=== PATIENT | female | born 1950 | race Caucasian/White ===

== ENCOUNTER → 2023-08-09 07:18 | Outpatient (REF) | payer MEDICARE, OTHER, SELFPAY | LOC: EMG 07:18 | PROVIDERS: ATTENDING PHYSICIAN Nurse Practitioner | DX: M79.674 Pain in right toe(s) (principal); R20.9 Unspecified disturbances of skin sensation | CPT/HCPCS: 95886; 95910 ==

== ENCOUNTER 2023-09-26 06:23 | Inpatient (IN) | payer MEDICARE, OTHER, SELFPAY ==
--- NOTE | 2023-08-24 10:32 | CM ---
Patient is scheduled for an elective R THR on 09/26/23. Spoke with patient prior to surgery via telephone. Patient had a L THR at in 2014. Reintroduced role of Orthopedic Navigator. Patient reports that she lives with her in a two story
home. There are four (3-1) steps to enter and a flight of steps to the second floor. She currently functions independently. She has a rolling walker, cane, raised toilet with rails, hip kit and shower seat. She has had VN services through VN. PCP
is Dr. Griselda Sargent.
Discussed orthopedic program and post surgical plans. Reviewed anticipated length of stay and that goal is for her to return home at discharge. Also reviewed outpatient PT. Patient is in agreement with tentative plan and will go directly to
outpatient PT at [facility]. She will have support from her when she goes home (he will be home for a week).
Patient will complete online education.
Plan: Orthopedic Navigator will remain available to assist with the care of patient and will reassess discharge needs after surgery.
[2023-09-12 08:40] VITALS: BMI 29.5
[2023-09-12 10:29] LABS: Hematocrit 40.7 % (37.0-47.0); Hemoglobin 11.5 g/dL (12.0-16.0); Mean Corp Hgb Conc. 28.3 g/dL (33.0-37.0); Mean Corpuscular Hgb 17.5 pg (27.0-31.0); Mean Corpuscular Volume 61.9 fL (81.0-99.0); Platelet Count 697 10^3/uL (130-400); Red Blood Cell Count 6.58 10^6/uL (4.20-5.40); Red Cell Dist. Width 22.3 % (11.5-14.5); White Blood Cell Count 9.5 10^3/uL (4.8-10.8)
[2023-09-12 10:55] LABS: ALT (SGPT) 34 U/L (0-35); AST (SGOT) 35 U/L (14-36); Albumin 4.4 g/dl (3.5-5.0); Alkaline Phosphatase 68 U/L (38-126); Blood Urea Nitrogen 17 mg/dl (7-17); Carbon Dioxide 27 mmol/L (22-30); Chloride 101 mmol/L (98-107); Estimated Creatinine Clearance 68 ml/min; Glucose 73 mg/dl (70-99); Potassium 5.8 mmol/L (3.5-5.1); Sodium 136 mmol/L (135-145); Total Bilirubin 0.6 mg/dl (0.2-1.3); Total Protein 6.7 g/dl (6.3-8.2); eGFR > 60.00
[2023-09-12 12:40] LABS: Vitamin D, 25-OH*** 32.7 ng/mL (30-80)
[2023-09-12 12:54] LABS: TSH 3.06 uIU/ml (0.47-4.68)
[2023-09-12 14:25] VITALS: BMI 29.5
--- NOTE | 2023-09-22 14:09 | PTCARENOTE ---
K+ 5.8, office made aware.
--- NOTE | 2023-09-22 14:11 | PTCARENOTE ---
K+ 5.8 and Platelets 697, office made aware.
--- NOTE | 2023-09-22 14:59 | PTCARENOTE ---
K+ 5.8, Dr. Koo made aware. Order to repeat lab morning of procedure placed by Dr. Koo.
[2023-09-26] VITALS (16 sets, daily range): BP systolic 98–190; BP diastolic 54–95; PULSE 75–101; O2SAT 100; BMI 29.5
[2023-09-26] MEDS: NORMOSOL-R 1000 IV (07:20)
[2023-09-26] MEDS: MOBIC 15 MG PO (07:27)
[2023-09-26] MEDS: TYLENOL 650 MG PO ×4 (07:27→20:59)
[2023-09-26 07:47] LABS: Potassium 4.7 mmol/L (3.5-5.1)
[2023-09-26] MEDS: NSS 1000 IV (10:39)
[2023-09-26] MEDS: ROXICODONE 5 MG PO (10:41)
[2023-09-26] MEDS: TYLENOL PO (11:20)
--- NOTE | 2023-09-26 11:37 | PTCARENOTE ---
Pt arrived to 2S in bed. Full assessment completed. Home medications sent to pharmacy for profiling. R hip aquacel C/D/I. B/L LE neurovascular assessment WDL. IVF infusing per order. Bed locked and in the lowest position, safety maintained. Hip
precautions reviewed with pt. Oriented to room and call cortez.
[2023-09-26 11:54] LABS: Glucose - Point of Care 141 mg/dl (70-99)
--- NOTE | 2023-09-26 11:58 | PTCARENOTE ---
RN called into room by PT/OT as pt c/o feeling nauseous. While assessing pt, pt became unresponsive and had a syncopal while sitting on the side of the bed. The pt was assisted in supine position by PT/OT and NSG staff and placed in trendelenburg.
Pt hypotensive, but alert and oriented and able to follow commands/converse with staff. Pt remains lying in bed at this time, spouse at bedside. Daisy Thayer PA-c notified. Care ongoing.
[2023-09-26] MEDS: ANCEF 5 IV ×2 (12:13→20:58)
[2023-09-26] MEDS: NORMOSOL-R 500 IV (12:33)
[2023-09-26] MEDS: ProAmatine 5 MG PO ×2 (12:33→17:13)
[2023-09-26] MEDS: ZOFRAN 4 MG IV (15:06)
--- NOTE | 2023-09-26 16:15 | PTCARENOTE ---
RN informed by PT that pt was unable to work with him due to nausea. Pt currently laying in bed. Admits to resolution of symptoms when laying in bed, denies nausea at this time. Pt refusing PRN compazine at this time, educated on purpose/benefits.
Care remains ongoing.
[2023-09-26] MEDS: XARELTO 10 MG PO (17:14)
[2023-09-26] MEDS: NON-FORMULARY ITEM 5 MG PO (20:57)
[2023-09-26] MEDS: SENOKOT 17.2 MG PO (20:59)
[2023-09-26] MEDS: BACTROBAN 2% OINTMENT 1 APPLIC NASAL (20:59)
[2023-09-26] MEDS: COLACE 100 MG PO (20:59)
[2023-09-26] MEDS: ULTRAM 50 MG PO (21:00)
[2023-09-27] VITALS (14 sets, daily range): BP systolic 100–151; BP diastolic 46–99; PULSE 78–86; O2SAT 99
[2023-09-27] MEDS: TYLENOL 650 MG PO ×5 (01:10→20:55)
[2023-09-27] MEDS: TYLENOL PO (04:08)
[2023-09-27] MEDS: BACTROBAN 2% OINTMENT 1 APPLIC NASAL ×2 (08:20→20:58)
[2023-09-27] MEDS: ProAmatine 5 MG PO ×3 (08:20→18:19)
[2023-09-27] MEDS: SENOKOT 17.2 MG PO ×2 (08:21→20:56)
[2023-09-27] MEDS: COLACE 100 MG PO ×2 (08:22→20:56)
[2023-09-27] MEDS: NON-FORMULARY ITEM 5 MG PO ×2 (08:23→20:57)
[2023-09-27] MEDS: ULTRAM 50 MG PO (08:27)
--- NOTE | 2023-09-27 08:46 | CM ---
Reviewed chart and held rounds with PT, OT and nursing. Patient admitted as planned for elective R THR. Met with patient at bedside. Confirmed information previously obtained for assessment. Also discussed discharge plans. The plan is for patient to
return home at discharge. She will have support from her when she goes home. The plan at this time is for patient to go directly to outpatient PT and will go to [facility]. She has an appointment scheduled for Tuesday, 09/27. Patient
feeling frustrated with not feeling well; support provided.
Patient has all needed DME at home.
She will use [facility] pharmacy for discharge prescriptions.
Discharge plans were reviewed with patient's on 09/25.
--- NOTE | 2023-09-27 11:41 | W.PN.ORTHO ---
Today's Communication / Plan
-
d/c in am if stable
Assessment
.
Distal Motor Intact: Yes
Dressing:
Clean, dry and intact.
Assessment:
Orthostasis-continue Midodrine, IVF and minimize opioids
Plan
.
Surgery / Date: R ANA LILIA Varela 09/26/23
DVT Prophylaxis: Other (Xarelto)
Activity:
Out of bed.
PT/OT
Discharge Plan: Home w/ VN
Subjective
.
.:
Patient resting comfortably.
Vital Signs and Labs
.
Vital Signs and Labs:
Lab Results
09/12/23 08:38
09/26/23 07:23
Temp Pulse Resp BP Pulse Ox
97.9 F 80 14 113/71 100
09/27/23 11:41 09/27/23 11:41 09/27/23 11:41 09/27/23 11:41 09/27/23 11:41
Non-invasive Hgb result: 9.1
Physical Exam
-
HEENT: No pallor, cyanosis, or jaundice. Throat clear.
NECK: Supple. No JVD.
RESPIRATORY: Lungs clear to auscultation.
CVS: S1, S2 normal. RRR.� No murmur, rub or gallop.
ABDOMEN: Soft, non-tender. No distension. BS+/normal.
EXTREMITIES: strength equal, no calf pain with palpation
NURSE ESTHETICIAN: AOx3. No focal deficits. research hydraulic engineer grossly intact
--- NOTE | 2023-09-27 11:55 | W.DS.TRANS ---
Addendum entered and electronically signed by Nanette Thayer PA-C 10/03/23 08:52:
Xarelto dose changed to 20mg at hs
Original Note:
DC Summary - Back End Web Developer
-
Discharge Instructions:
Sleep Apnea Risk Low
Discharge Diagnosis/Procedures R ANA LILIA Dr. Varela 09/26/23
Diet As tolerated
Activity With Walker
Driving Restrictions No driving
Bathing Restrictions OK to Shower
Other Services PT,VN,OT
Instructions:
Stand-Alone Forms: Total Hip/Knee Replacement D/C
Changes to Home Medications: Yes
Discharge Medications:
DC Medications w/original date entered in [employer]
diltiazem HCl 180 mg capsule,extended release 24 hr (Cardizem CD) 240 mg PO DAILY Heart Disease/Condition 09/07/23
ropeginterferon [id number] 500 mcg/mL subcutaneous syringe (Besremi) 75 mcg SC Q2W Biological Response Modul 09/07/23
ruxolitinib 5 mg tablet (Jakafi) 5 mg PO BID Antineoplastic Agent 09/07/23
mupirocin 2 % topical ointment 1 applic topical BID infection prevention #1 tube 09/12/23
ergocalciferol (vitamin D2) 50 mcg (2,000 unit) tablet 50 mcg PO WEEKLY vitamin D deficiency #20 tabs 09/16/23
Saccharomyces boulardii 250 mg capsule (Florastor) 250 mg PO BID #1 cap 09/27/23
acetaminophen 500 mg tablet (Tylenol Extra Strength) 1,000 mg (2 x 500 mg) PO QID #0 tabs 09/27/23
docusate sodium 100 mg capsule (Colace) 100 mg PO BID stool softner #1 cap 09/27/23
gabapentin 300 mg capsule 300 mg PO HS sleep/pain #10 caps 09/27/23
magnesium hydroxide 400 mg/5 mL oral suspension (Milk of Magnesia) 30 ml PO HS PRN Constipation #1 mL 09/27/23
ondansetron 4 mg disintegrating tablet 4 mg PO Q6H PRN n/v #20 tabs 09/27/23
rivaroxaban 10 mg tablet (Xarelto) 10 mg PO QPM Blood clot prevention/tx/afibb #2 tabs 09/27/23
rivaroxaban 20 mg tablet (Xarelto) 20 mg PO QPM Blood Clot Prevention/Tx 09/27/23
sennosides 8.6 mg tablet (Senokot) 17.2 mg (2 x 8.6 mg) PO BID laxative #2 tabs 09/27/23
tramadol 50 mg tablet 50 mg PO Q6H PRN 1 tab moderate pain, 2 if severe #30 tabs 09/27/23
Home Medication Changes
gabapentin 300 mg capsule 300 mg PO HS sleep/pain #10 caps 09/27/23�
ondansetron 4 mg disintegrating tablet 4 mg PO Q6H PRN n/v #20 tabs 09/27/23�
rivaroxaban 10 mg tablet (Xarelto) 10 mg PO QPM Blood clot prevention/tx/afibb #2 tabs 09/27/23�
tramadol 50 mg tablet 50 mg PO Q6H PRN 1 tab moderate pain, 2 if severe #30 tabs 09/27/23�
Pending Results: No
[2023-09-27] MEDS: NORMOSOL-R 500 IV (12:09)
[2023-09-27 15:39] LABS: Hemoglobin 6.1 g/dL (12.0-16.0)
--- NOTE | 2023-09-27 16:55 | W.PN.ORTHO ---
Today's Communication / Plan
-
Patient with a history of polycythemia vera. Patient known to Dr. Medina, but recently has been receiving hematologic treatment at the [facility] by Dr. Ann Small. Patient was seen preoperatively by Dr. Small. Hemoglobin
was 11.7, white blood cell count 8.8, platelet count 640. Patient has been receiving Jakafi without interruption. Patient is on Xarelto for atrial fibrillation, her last dose preoperatively was on Tuesday. This morning, her noninvasive hemoglobin
was 9.1. Patient continued to be lightheaded/orthostatic throughout the day. She received a fluid bolus as well as midodrine. A repeat hemoglobin and hematocrit was ordered this afternoon 6.1/20.0. I discussed her case with Dr. Houston as well as
Dr. Noe from hematology. (I attempted to contact Dr. Small but was unable to reach her and left a voicemail with her administrative liaison requesting a call back). Dr. Medina and Dr. Noe concur with transfusing 2 units of
packed red blood cells. Xarelto to be put on hold. Surgical wound is unremarkable. Postoperative x-rays were also as expected after routine right hip replacement. She only lost about 50 cc of blood during the procedure. I have ordered a CT scan
of her abdomen and pelvis to be certain there is no third spacing of blood. Patient will continue to be monitored on telemetry and a formal hematology consult has been requested.
Assessment
.
Distal Motor Intact: Yes
Dressing:
Aquacel dressing in place. Small amount of bloody drainage. No significant hematoma.
Plan
.
Surgery / Date: R ANA LILIA Varela 09/26/23
DVT Prophylaxis: Other
Activity:
Out of bed.
PT/OT
Discharge Plan: Home w/ Outpatient PT
Subjective
.
.:
Patient resting comfortably. Able to sit up in bed. Patient is responding appropriately to questions.
Vital Signs and Labs
.
Vital Signs and Labs:
Lab Results
09/26/23 07:23
Temp Pulse Resp BP Pulse Ox
98.1 F 84 16 129/99 99
09/27/23 15:12 09/27/23 15:12 09/27/23 15:12 09/27/23 15:12 09/27/23 15:12
stat hemoglobin/hematocrit this afternoon 6.1/20.
Non-invasive Hgb result: 9.1
[2023-09-27 17:22] LABS: % Basophils 0.4 % (0-2); % Eosinophils 0.1 % (0-6); % Immature Granulocytes 0.7 % (0-0.5); % Lymphocytes 4.4 % (20.5-51.1); % Monocytes 8.7 % (1.7-9.3); % Neutrophils 85.7 % (42.2-75.2); Absolute Basophils 0.1 10^3/uL (0-0.2); Absolute Immature Granulocytes 0.2 10^3/uL (0-0.05); Absolute Monocytes 1.9 10^3/uL (0.1-0.6); Absolute Neutrophils 18.7 10^3/uL (1.4-6.5); Mean Corp Hgb Conc. 30.5 g/dL (33.0-37.0); Nucleated Red Blood Cells % 0 %; Red Blood Cell Count 3.44 10^6/uL (4.20-5.40); Red Cell Dist. Width 20.4 % (11.5-14.5); White Blood Cell Count 21.8 10^3/uL (4.8-10.8)
[2023-09-27 17:28] LABS: Hematocrit 20.3 % (37.0-47.0); Hemoglobin 6.2 g/dL (12.0-16.0)
[2023-09-27 17:58] LABS: Mean Platelet Volume 10.9 fL (7.4-10.4); Platelet Count 1252 10^3/uL (130-400)
[2023-09-27 17:59] LABS: Anisocytosis 2+; Normal RBC Morphology No
[2023-09-27 18:00] LABS: Hypochromasia 3+; Microcytosis 1+; Ovalocytes 2+; Spherocytes 1+; Stomatocytes 1+; Tear Drop Red Blood Cells 1+
[2023-09-27] MEDS: ZOFRAN 4 MG IV (18:24)
[2023-09-28] VITALS (10 sets, daily range): BP systolic 128–168; BP diastolic 60–80; PULSE 86–94; O2SAT 97
[2023-09-28] MEDS: TYLENOL 650 MG PO ×6 (00:14→22:09)
[2023-09-28 05:32] LABS: % Eosinophils 1.9 % (0-6); % Immature Granulocytes 0.5 % (0-0.5); % Lymphocytes 7.2 % (20.5-51.1); % Monocytes 10.7 % (1.7-9.3); % Neutrophils 78.7 % (42.2-75.2); Absolute Basophils 0.1 10^3/uL (0-0.2); Absolute Eosinophils 0.2 10^3/uL (0-0.7); Absolute Immature Granulocytes 0.1 10^3/uL (0-0.05); Absolute Lymphocytes 0.8 10^3/uL (1.2-3.4); Absolute Monocytes 1.2 10^3/uL (0.1-0.6); Absolute Neutrophils 8.7 10^3/uL (1.4-6.5); Hematocrit 25.3 % (37.0-47.0); Mean Corp Hgb Conc. 31.6 g/dL (33.0-37.0); Mean Corpuscular Hgb 20.4 pg (27.0-31.0); Mean Corpuscular Volume 64.5 fL (81.0-99.0); Mean Platelet Volume 10.7 fL (7.4-10.4); Nucleated Red Blood Cells % 0 %; Platelet Count 766 10^3/uL (130-400); Red Blood Cell Count 3.92 10^6/uL (4.20-5.40); White Blood Cell Count 11.1 10^3/uL (4.8-10.8)
--- NOTE | 2023-09-28 07:25 | W.PN.ORTHO ---
Today's Communication / Plan
-
Patient's hemoglobin improved this morning to 8.0 (previously 6.1, 6.2.) After transfusion of platelets and 2 units packed red blood cells.
CT scan of abdomen and pelvis reviewed with Dr. Sebastian. There is no evidence of a discrete arterial/venous bleed. Just diffuse bleeding likely consistent with coagulopathy.
Patient with polycythemia vera and platelet dysfunction. Xarelto on hold. Will continue with teds and Venodyne's for mechanical prophylaxis.
Appreciate input from hematology (Dr. Medina and Hasmukh) as well as cardiology.
Assessment
.
Dressing:
Small amount of bloody drainage. Aquacel intact.
Plan
.
Surgery / Date: R ANA LILIA Dr. Varela 09/26/23
DVT Prophylaxis: Other (Pharmacologic prophylaxis (Xarelto) on hold. Continue with teds and Venodyne's.)
Activity:
Out of bed.
PT/OT
Discharge Plan: Home w/ Outpatient PT
Subjective
.
.:
Patient resting comfortably.
Vital Signs and Labs
.
Vital Signs and Labs:
Lab Results
09/28/23 04:47
09/26/23 07:23
Temp Pulse Resp BP Pulse Ox
98.3 F 83 18 135/75 92
09/28/23 04:02 09/28/23 04:02 09/28/23 04:02 09/28/23 04:02 09/28/23 04:00
Non-invasive Hgb result: 9.1
[2023-09-28] MEDS: SENOKOT 17.2 MG PO (08:03)
[2023-09-28] MEDS: ProAmatine PO ×3 (08:03→17:28)
[2023-09-28] MEDS: COLACE 100 MG PO ×2 (08:03→22:09)
[2023-09-28] MEDS: NON-FORMULARY ITEM 5 MG PO ×2 (08:04→22:08)
[2023-09-28] MEDS: ULTRAM 50 MG PO (08:05)
--- NOTE | 2023-09-28 09:12 | CM ---
Addendum entered by Nona Leung 09/28/23 12:32:
Met with patient, and friend. Patient asked about renting a hospital bed for a week. Explained that DME companies likely won't rent one for just a week and that it would have to be for a month. Also explained that this would most likely not
be covered by her insurance. Patient requested that this be confirmed with a DME company.
Call placed to [facility]; spoke with Yee. She states that they would not rent a hospital bed for one week. She also states that the soonest it could be delivered would be Tuesday afternoon.
Also spoke with Rl at [place]. He also states that they would not rent a hospital bed for one week. He is also uncertain when it could be delivered due to the holiday.
Patient updated. appeared very angry during conversation.
Original Note:
Reviewed chart and held rounds with PT, OT and nursing. Met with patient at bedside. Patient states that she is feeling better today. Discussed discharge plans. The plan continues to be for patient to return home at discharge. She will have support
from her . Discussed outpatient PT vs VN services. She feels more comfortable having VN services initially. Reviewed start of care (tentatively 09/28), services to be ordered (PT, OT, SN) and frequency/duration of services. Options list
provided and PAC data reviewed. Patient selects VN.
Patient has all needed DME at home.
VN referral was completed and sent to [facility] through [employer] with request for start of care on 09/28. Confirmation received of their ability to accept case. customer service correspondence clerk to fax discharge instructions to [facility] when complete.
She will use [facility] pharmacy for discharge prescriptions.
--- NOTE | 2023-09-28 09:39 | PN.CDI ---
CDI
- -
CDI:
Physician Documentation Request
Admit Date: 09/26/23 06:23
Dear Doctor Nichole,
Please review the following and provide your response in the progress notes.
Clinical Indicators:
- 09/27 Ortho note 'Patient's hemoglobin improved this morning...After transfusion of platelets and 2 units packed red blood cells'
- 'no evidence of a discrete arterial/venous bleed...Just diffuse bleeding likely consistent with coagulopathy'
- 09/25 10mg Xarelto
- 2 units PRBC and 1 unit platelets given
- 3L IVF given
Laboratory Tests
09/12/23 09/27/23 09/28/23
08:38 15:16 04:47
Hgb 11.5 L 6.1 L* 8.0 L D
Please clarify the appropriate diagnosis that supports the above lab abnormalities and additional evaluation, monitoring and/or treatment rendered:
Anemia, due to acute blood loss and hemodilution
Anemia due to Xarelto and hemodilution
Clinically insignificant abnormal lab values
Other
Use of terms such as suspected, likely, concern for, or probable (associated with a specific diagnosis that is being evaluated, monitored, or treated as if it exists) are acceptable and can be coded in the inpatient setting, when documented at the
time of discharge.
Thank you,
Kathryn Cedeno RN
CDI Specialist
Please use your independent medical judgment in providing your response.
--- NOTE | 2023-09-28 11:09 | W.PN.CARDCBS ---
Addendum entered and electronically signed by Hakeem Hurtado MD 09/28/23 18:11:
I saw and examined the patient.
The General Office Clerk's note was reviewed and I agree with the note.
Comment: Briefly, 73-year-old woman past medical history of paroxysmal atrial fibrillation who underwent right total hip replacement on 09/26/2023
Currently stable from cardiovascular standpoint
Agree with resuming Cardizem at 120 mg daily today with plan for her to take 180 mg daily of Cardizem as an outpatient
Will defer management of Xarelto to hematology given postop anemia in the setting of polycythemia vera
We will sign off, please recall as needed
Original Note:
Today's Communication / Plan
-
Willing to try Cardizem CD 120 mg now
If tolerates Cardizem CD 120 mg now then will discharge to home on Cardizem CD 180 mg daily. Patient wants to use a prescription of Cardizem CD 180 mg daily she already has at home from a trusted acrobatic rigger so she will not need a new Rx at time of
discharge.
Impression / Plan
-
PCP: Dr. Sargent
Primary Logging Tractor Operator Swamp: Dr. Wayne Mike
Heme: Dr. Ann Small at [place] and Dr. Houston locally
Cardio-oncology: Dr. Puri at [place]
Impression:
s/p right ANA LILIA 09/26/23
Blood loss anemia
Paroxysmal Afib
Chronic Xarelto OAC
PCV on chronic Jakafi
Paroxysmal SVT and s/p SVT ablation 2006
HTN
ECHO 12/01/17: EF 60%, no regional wall motion abnormalities, no significant valvular disease
Plan:
-Patient had an elective right ANA LILIA on 09/26/23, prior to that she was seen for cardiac pre-operative evaluation 08/05/23. Patient was also seen by her local Heme/Onc prior to surgery. Patient is chronically on Jakafi and was on Besremi as well, but
this dose was held due to LE pain and erythema. Patient also has therapeutic phlebotomy. Due to h/o paroxysmal Afib and and complex hematologic history the patient was felt to be at increased risk for postoperative VTE complications and it was
recommended that anticoagulation be resumed within 12 hours of surgery either in the form of restarting Xarelto or interval use of heparin. Patient had ANA LILIA 09/26/23 with minimal blood loss. Orthopedic surgery service following Hgb and repeat H&H in
the setting of orthostasis yesterday found Hgb down to 6.1. Orthopedics conferred with local Contract Clerk and patient was given 2 units of PRBCs and a pack a platelets in addition to hold Xarelto. Cardiology was asked to see patient in the hospital
because patient is declining her usual dose of Cardizem CD and they are concerned that she will recur with Afib.
-Orthostasis noted on 09/27/23 and midodrine 5 mg TID added. BP 132/60 on 09/28/23 AM so midodrine dose held.
-Patient has been declining her usual dose of Cardizem CD 240 mg daily due to symptomatic orthostasis. Patient is willing to try a lower dose of Cardizem CD 120 mg daily starting now. Patient has a bottle of Cardizem CD 180 mg daily at home from a
trusted acrobatic rigger, she has had adverse side effects with other manufacturers in the past. So, if patient tolerates Cardizem CD 120 mg now then she will take Cardizem CD 180 mg daily at home using a supply she already has and will not need a new
Rx.
-Patient was taking Xarelto 20 mg daily prior to admission, but dose was lowered to 10 mg daily when it was restarted post-op. Xarelto is now on hold due to bleeding.
-Post-op ECG on 09/26/23 reviewed by me and is NSR. Tele is NSR as well.
Progress Note - Logging Tractor Operator Swamp
Subjective
Date of Service: September 28, 2023
Less lightheaded today
Objective
Labs:
09/28/23 04:47
09/26/23 07:23
Labs
Hgb 8.0 g/dL (12.0-16.0) L D 09/28/23 04:47
Hct 25.3 % (37.0-47.0) L 09/28/23 04:47
Plt Count 766 10^3/uL (130-400) H D 09/28/23 04:47
Sodium 136 mmol/L (135-145) 09/12/23 08:38
Potassium 4.7 mmol/L (3.5-5.1) 09/26/23 07:23
BUN 17 mg/dl (7-17) 09/12/23 08:38
Creatinine 0.7 mg/dL (0.6-1.0) 09/12/23 08:38
Glucose 73 mg/dl (70-99) 09/12/23 08:38
Vital Signs and I&O:
Vital Signs
Temp Pulse Resp BP Pulse Ox
98.3 F 96 17 132/60 95
09/28/23 07:22 09/28/23 08:03 09/28/23 07:22 09/28/23 08:03 09/28/23 08:00
Vital Signs
Temp Pulse Resp BP Pulse Ox
98.3 F 96 17 132/60 95
09/28/23 07:22 09/28/23 08:03 09/28/23 07:22 09/28/23 08:03 09/28/23 08:00
Intake & Output
09/26/23 09/27/23 09/28/23 09/29/23
06:59 06:59 06:59 06:59
Intake Total 1819 / 216
Output Total 400 / 400
Balance 1819
Physical Exam
Physical Exam
GEN: NAD. AAOx3
HEENT: EOMI, MMM
LUNGS: CTA B/L, no wheezes or rales
CV: Reg, S1/S2, no murmur
ABD: soft, BS+, NT, ND
NEURO: Gross non-focal
SKIN: No rash
[2023-09-28] MEDS: CARDIZEM CD 120 MG PO (14:11)
--- NOTE | 2023-09-28 14:15 | PTCARENOTE ---
Patient's own home medication diltiazem 240mg sent home with patient spouse as this medication has been discontinued
--- NOTE | 2023-09-28 14:19 | CON.ONC ---
Impression
Impression
Extensive postoperative bleeding in relation to total hip
Polycythemia vera with thrombocytosis, currently on Jakafi and alpha interferon
Atrial fibrillation requiring full dose Xarelto
Plan
Plan
I believe most of the risk of bleeding has passed. I would like to begin her on Lovenox 40 mg twice daily subcutaneously. If she has no further evidence of bleeding by tomorrow afternoon with her third dose, then I would clear her to resume her
Xarelto at 20 mg daily beginning Tuesday morning. We will track her hemoglobin. No further indication for blood products at this time. Discussed with Dr. Varela.
Patient History
History of Present Illness
Consult from Dr. Varela regarding polycythemia and bleeding
This is a 73-year-old woman underwent a right total hip on September 25. Intraoperative bleeding seemed minimal. However, following the procedure dropped from 11 down to 6. Interestingly, her baseline platelet count of 600,000 increased to 1.2 million.
She was transfused with 2 units of packed cells, and at the recommendation of hematology, 1 unit of pheresis platelets. She underwent a CT scan which did indeed confirm a very large hematoma in the operative area. She is having minimal
discomfort. Her hemoglobin today is 8 g, with a platelet count of 766,000.
She has a 6-year history of polycythemia vera, her red cells controlled by repeat phlebotomy to induce a state of iron deficiency. She also takes Jakafi as well as alpha-interferon. She was taking Xarelto for atrial fibrillation, her last dose was
on September 22.
Past-Medical/Surgical History
As per problem list below.
Social history: She does not smoke.
Family history is noncontributory.
Patient Medication
�Medication �Instructions �Recorded �Confirmed �Last Taken �Type
ropeginterferon ufrm-4x-mcab 500 75 mcg SC Q2W Biological Response 09/07/23 09/26/23 09/23/23 History
mcg/mL subcutaneous syringe Modul
(Besremi)
ruxolitinib 5 mg tablet (Jakafi) 5 mg PO BID Antineoplastic Agent 09/07/23 09/26/23 09/26/23 03:45 History
mupirocin 2 % topical ointment 1 applic topical BID infection 09/12/23 Unknown Rx
prevention #1 tube
ergocalciferol (vitamin D2) 50 mcg 50 mcg PO WEEKLY vitamin D 09/16/23 Unknown Rx
(2,000 unit) tablet deficiency #20 tabs
Saccharomyces boulardii 250 mg 250 mg PO BID #1 cap 09/27/23 Unknown Rx
capsule (Florastor)
acetaminophen 500 mg tablet 1,000 mg (2 x 500 mg) PO QID #0 09/27/23 09/26/23 09/23/23 Rx
(Tylenol Extra Strength) tabs
docusate sodium 100 mg capsule 100 mg PO BID stool softner #1 cap 09/27/23 Unknown Rx
(Colace)
gabapentin 300 mg capsule 300 mg PO HS sleep/pain #10 caps 09/27/23 Unknown Rx
magnesium hydroxide 400 mg/5 mL 30 ml PO HS PRN Constipation #1 mL 09/27/23 Unknown Rx
oral suspension (Milk of Magnesia)
ondansetron 4 mg disintegrating 4 mg PO Q6H PRN n/v #20 tabs 09/27/23 Unknown Rx
tablet
rivaroxaban 10 mg tablet (Xarelto) 10 mg PO QPM Blood clot 09/27/23 Unknown Rx
prevention/tx/afibb #2 tabs
rivaroxaban 20 mg tablet (Xarelto) 20 mg PO QPM Blood Clot 09/27/23 09/26/23 09/23/23 08:00 History
Prevention/Tx
sennosides 8.6 mg tablet (Senokot) 17.2 mg (2 x 8.6 mg) PO BID 09/27/23 Unknown Rx
laxative #2 tabs
tramadol 50 mg tablet 50 mg PO Q6H PRN 1 tab moderate 09/27/23 Unknown Rx
pain, 2 if severe #30 tabs
diltiazem HCl 180 mg 180 mg PO DAILY Heart 09/28/23 09/26/23 09/26/23 03:45 Rx
capsule,extended release 24 hr Disease/Condition #0 caps
(Cardizem CD)
Active Medications
Generic Name Dose Route Start Last Admin
Trade Name Freq PRN Reason Stop Dose Admin
Acetaminophen 650 mg 09/26/23 08:00 09/28/23 11:47
Acetaminophen 325 Mg Tablet PO 10/24/23 07:59 650 mg
Q4HWA HUANG Administration
Al Hydrox/Mg Hydrox/Simethicone 30 ml 09/26/23 06:15
Mag/Al/Simethicone Suspension 30 Ml Cup PO 10/24/23 06:14
Q4HPRN PRN
INDIGESTION
Dexamethasone 4 mg 09/26/23 20:00 09/28/23 08:00
Dexamethasone 4 Mg Tablet PO 09/29/23 08:01 Not Given
BID HUANG
Diltiazem HCl 180 mg 09/29/23 08:00
Diltiazem 180 Mg Extended Release (24 H) Capsule PO 10/27/23 07:59
DAILY HUANG
Diphenhydramine HCl 50 mg 09/26/23 22:00 09/27/23 21:41
Diphenhydramine 50 Mg/Ml 1 Ml Vial IV 10/24/23 21:59 Not Given
HS HUANG
Docusate Sodium 100 mg 09/26/23 20:00 09/28/23 08:03
Docusate Sodium 100 Mg Capsule PO 10/24/23 19:59 100 mg
BID HUANG Administration
Gabapentin 300 mg 09/26/23 22:00 09/27/23 21:41
Gabapentin 300 Mg Capsule PO 10/24/23 21:59 Not Given
HS HUANG
Magnesium Hydroxide 30 ml 09/26/23 06:15
Milk Of Magnesia 30 Ml Cup PO 10/24/23 06:14
DAILYPRN PRN
constipation
Midodrine 5 mg 09/27/23 13:00 09/28/23 12:03
Midodrine 5 Mg Tablet PO 10/25/23 12:59 Not Given
TID@0800,1300,1800 HUANG
Ruxolitinib [Jakafi] 0 mg 09/26/23 20:00 09/28/23 08:04
5 Mg Tablet Bid Po PO 10/24/23 19:59 5 mg
BID HUANG Administration
Ondansetron HCl 4 mg 09/26/23 06:15 09/27/23 18:24
Ondansetron 4 Mg/2 Ml Vial IV 10/24/23 06:14 4 mg
Q6HPRN PRN Administration
NAUSEA
Prochlorperazine Maleate 5 mg 09/26/23 06:15
Prochlorperazine 5 Mg Tablet PO 10/24/23 06:14
Q6HPRN PRN
nausea/vomiting
Sennosides 17.2 mg 09/26/23 20:00 09/28/23 08:03
Sennosides (Senokot) 8.6 Mg Tablet PO 10/24/23 19:59 17.2 mg
BID HUANG Administration
Sodium Chloride 0 flush 09/26/23 06:00
Sodium Chloride 0.9% (Flush) Syringe IV 10/24/23 05:59
PER PROTOCOL HUANG
Tamsulosin HCl 0.4 mg 09/26/23 06:15
Tamsulosin 0.4 Mg Capsule PO 10/24/23 06:14
DAILYPRN PRN
bladder scan volume > 400 mL
Tramadol HCl 50 mg 09/26/23 12:05 09/28/23 08:05
Tramadol Hcl 50 Mg Tablet PO 10/24/23 06:28 50 mg
Q6HPRN PRN Administration
moderate-severe pain
Tranexamic Acid 1,300 mg 09/28/23 18:50
Tranexamic Acid 650 Mg Tablet PO 09/29/23 08:01
DAILY HUANG
Review of Systems
-
All Other Systems: Reviewed and Negative
Physical Exam
-
Physical examination shows the patient to be in no acute distress. Examination is somewhat limited by her lack of mobility.
HEENT exam is unremarkable.
There are no palpable nodes.
Chest is clear.
The heart is regular with no murmur or gallop.
The abdomen is soft and nontender with no organomegaly or masses.
Extremities are unremarkable.
Neurologic is grossly intact.
Labs
Lab Results
WBC 11.1 10^3/uL (4.8-10.8) H 09/28/23 04:47
RBC 3.92 10^6/uL (4.20-5.40) L 09/28/23 04:47
Hgb 8.0 g/dL (12.0-16.0) L D 09/28/23 04:47
Hct 25.3 % (37.0-47.0) L 09/28/23 04:47
MCV 64.5 fL (81.0-99.0) L 09/28/23 04:47
MCH 20.4 pg (27.0-31.0) L 09/28/23 04:47
MCHC 31.6 g/dL (33.0-37.0) L 09/28/23 04:47
RDW 24.0 % (11.5-14.5) H 09/28/23 04:47
Plt Count 766 10^3/uL (130-400) H D 09/28/23 04:47
MPV 10.7 fL (7.4-10.4) H 09/28/23 04:47
Abs Immat Gran (auto) 0.1 10^3/uL (0-0.05) H 09/28/23 04:47
Absolute Neuts (auto) 8.7 10^3/uL (1.4-6.5) H 09/28/23 04:47
Absolute Lymphs (auto) 0.8 10^3/uL (1.2-3.4) L 09/28/23 04:47
Absolute Monos (auto) 1.2 10^3/uL (0.1-0.6) H 09/28/23 04:47
Absolute Eos (auto) 0.2 10^3/uL (0-0.7) 09/28/23 04:47
Absolute Basos (auto) 0.1 10^3/uL (0-0.2) 09/28/23 04:47
Immature Gran % 0.5 % (0-0.5) 09/28/23 04:47
Neutrophils % 78.7 % (42.2-75.2) H 09/28/23 04:47
Lymphocytes % 7.2 % (20.5-51.1) L 09/28/23 04:47
Monocytes % 10.7 % (1.7-9.3) H 09/28/23 04:47
Eosinophils % 1.9 % (0-6) 09/28/23 04:47
Basophils % 1.0 % (0-2) 09/28/23 04:47
Creatinine 0.7 mg/dL (0.6-1.0) 09/12/23 08:38
Vital Signs
Vital Signs
Temp Pulse Resp BP Pulse Ox
98.5 F 83 17 126/62 95
09/28/23 11:20 09/28/23 14:11 09/28/23 11:20 09/28/23 14:11 09/28/23 11:20
[2023-09-28] MEDS: CYKLOKAPRON 1300 MG PO (17:59)
[2023-09-28] MEDS: SENOKOT PO (22:07)
[2023-09-28] MEDS: LOVENOX 40 MG SC (22:08)
[2023-09-28] MEDS: MYLICON 80 MG PO (23:13)
[2023-09-29] VITALS (7 sets, daily range): BP systolic 131–154; BP diastolic 61–77; PULSE 104; O2SAT 97
[2023-09-29] MEDS: TYLENOL PO ×2 (01:24→04:32)
[2023-09-29 05:22] LABS: % Eosinophils 2.4 % (0-6); % Immature Granulocytes 0.8 % (0-0.5); % Lymphocytes 6.5 % (20.5-51.1); % Monocytes 8.6 % (1.7-9.3); % Neutrophils 80.7 % (42.2-75.2); Absolute Basophils 0.1 10^3/uL (0-0.2); Absolute Eosinophils 0.2 10^3/uL (0-0.7); Absolute Immature Granulocytes 0.1 10^3/uL (0-0.05); Absolute Lymphocytes 0.6 10^3/uL (1.2-3.4); Absolute Monocytes 0.9 10^3/uL (0.1-0.6); Hematocrit 24.2 % (37.0-47.0); Hemoglobin 7.3 g/dL (12.0-16.0); Mean Corp Hgb Conc. 30.2 g/dL (33.0-37.0); Mean Corpuscular Volume 66.3 fL (81.0-99.0); Mean Platelet Volume 10.7 fL (7.4-10.4); Nucleated Red Blood Cells % 0 %; Platelet Count 657 10^3/uL (130-400); Red Blood Cell Count 3.65 10^6/uL (4.20-5.40); Red Cell Dist. Width 22.2 % (11.5-14.5); White Blood Cell Count 9.9 10^3/uL (4.8-10.8)
[2023-09-29] MEDS: COLACE 100 MG PO ×2 (09:10→21:06)
[2023-09-29] MEDS: CYKLOKAPRON 1300 MG PO (09:10)
[2023-09-29] MEDS: ProAmatine PO ×3 (09:10→16:00)
[2023-09-29] MEDS: LOVENOX 40 MG SC ×2 (09:11→21:10)
[2023-09-29] MEDS: TYLENOL 650 MG PO ×5 (09:12→23:02)
[2023-09-29] MEDS: NON-FORMULARY ITEM 5 MG PO (09:12)
[2023-09-29] MEDS: SENOKOT PO ×2 (09:16→20:54)
--- NOTE | 2023-09-29 09:20 | W.PN.ORTHO ---
Today's Communication / Plan
-
73F s/p R ANA LILIA with sig PMHx of PV with postop anemia
-WBAT with assistive devices/DME, posterior hip precautions
-PT/OT; D/C planning of outpatient VN
-Diet- regular
-Pain controlled on current regimen
-DVT ppx: mechanical of foot pumps, compression stocking; as per heme LMWH 40 BID, transition to xarelto on Tuesday pending labs
-PV with postop anemia: heme on board; appreciate assistance with the patient, s/p 2 PRBCs yesterday and 1 unit pheresis platelets. Hgb at 7.3; dressing with minimal strikethrough; will continue to monitor for symptoms, consider transfusion if
recommended by heme
-paroxysmal a-fib: seen by cardiology, appreciate assistance; currently 120mg Cardizem while inpatient, transition to 180mg as outpatient.
Assessment
.
Distal Motor Intact: Yes
Dressing:
Dressing has mild central strikethrough; intact. No surrounding erythema. Mild edema
Plan
.
Surgery / Date: R ANA LILIA Dr. Varela 09/26/23
Activity:
Out of bed.
PT/OT
Discharge Information:
pending
Subjective
.
.:
Patient resting comfortably. Reports mild headache but overall well.
Vital Signs and Labs
.
Vital Signs and Labs:
Lab Results
09/29/23 04:30
09/26/23 07:23
Temp Pulse Resp BP Pulse Ox
98.6 F 82 16 148/72 96
09/29/23 07:36 09/29/23 09:11 09/29/23 07:36 09/29/23 09:11 09/29/23 07:36
[2023-09-29] MEDS: NON-FORMULARY ITEM 1 UNIT PO (12:49)
--- NOTE | 2023-09-29 14:41 | W.PN.ONC ---
Today's Communication / Plan
-
Hb holding 7.3g/dl
chronic microcytic iron deficiency in setting of chronic phlebotomy for MPD
consider IV iron
will discuss plan of care w/ patient's desktop support technician at [facility]
Impression
Impression
postoperative bleeding in relation to total hip
Polycythemia vera with thrombocytosis, currently on Jakafi and alpha interferon
Atrial fibrillation requiring full dose Xarelto
iron deficiency
Plan
Plan
1. Post-operative bleeding - post hip surgery
-hemoglobin is holding at 7.3g/dl
-she is chronically iron deficient in the setting of multiple phlebotomy tx for her MPD over several years
-may benefit from addition of IV iron therapy to boost hemoglobin - as marrow reserve may be limited
-will discuss addition of IV iron w/ patient's desktop support technician at [facility]
Subjective/Objective
Subjective/Objective
feels better, no SOB or chest pain
Vital Signs:
Vital Signs
Temp Pulse Resp BP Pulse Ox
98.4 F 95 16 147/75 97
09/29/23 11:12 09/29/23 12:49 09/29/23 11:12 09/29/23 12:49 09/29/23 11:12
Lab Results:
Laboratory Data
WBC 9.9 10^3/uL (4.8-10.8) 09/29/23 04:30
Hgb 7.3 g/dL (12.0-16.0) L 09/29/23 04:30
Plt Count 657 10^3/uL (130-400) H 09/29/23 04:30
eGFR > 60.00 09/12/23 08:38
[2023-09-29] MEDS: NON-FORMULARY ITEM 1 MG PO (21:06)
[2023-09-30] VITALS (11 sets, daily range): BP systolic 105–170; BP diastolic 61–87; PULSE 103; O2SAT 98
[2023-09-30] MEDS: TYLENOL PO (03:18)
[2023-09-30 05:48] LABS: % Eosinophils 3.5 % (0-6); % Immature Granulocytes 1.1 % (0-0.5); % Monocytes 7.8 % (1.7-9.3); % Neutrophils 79.6 % (42.2-75.2); Absolute Basophils 0.1 10^3/uL (0-0.2); Absolute Eosinophils 0.4 10^3/uL (0-0.7); Absolute Immature Granulocytes 0.1 10^3/uL (0-0.05); Absolute Lymphocytes 0.8 10^3/uL (1.2-3.4); Absolute Monocytes 0.9 10^3/uL (0.1-0.6); Absolute Neutrophils 8.7 10^3/uL (1.4-6.5); Hematocrit 24.5 % (37.0-47.0); Hemoglobin 7.8 g/dL (12.0-16.0); Mean Corp Hgb Conc. 31.8 g/dL (33.0-37.0); Mean Corpuscular Volume 65.9 fL (81.0-99.0); Mean Platelet Volume 10.2 fL (7.4-10.4); Nucleated Red Blood Cells % 0.2 %; Platelet Count 661 10^3/uL (130-400); Red Blood Cell Count 3.72 10^6/uL (4.20-5.40); Red Cell Dist. Width 23.3 % (11.5-14.5); White Blood Cell Count 10.9 10^3/uL (4.8-10.8)
[2023-09-30 06:22] LABS: Blood Urea Nitrogen 11 mg/dl (7-17); Calcium 8.8 mg/dl (8.4-10.2); Carbon Dioxide 24 mmol/L (22-30); Chloride 104 mmol/L (98-107); Estimated Creatinine Clearance 79 ml/min; Glucose 90 mg/dl (70-99); Potassium 4.6 mmol/L (3.5-5.1); Sodium 132 mmol/L (135-145); eGFR > 60.00
[2023-09-30 07:08] LABS: Urine Albumin Negative (Neg - Trace); Urine Bilirubin Negative (Negative); Urine Character Clear (Clear); Urine Color Yellow; Urine Glucose Negative (Negative); Urine Ketone Negative (Negative); Urine Leukocyte Trace (Negative); Urine Nitrite Negative (Negative); Urine Occult Blood Negative (Negative); Urine Specific Gravity 1.005 (<1.030); Urine Urobilinogen Negative (Neg - 1+)
[2023-09-30 08:07] LABS: Urine Red Blood Cell 0-2 /HPF (0-2); Urine Urothelial Cell 0-2 /LPF (FEW)
[2023-09-30] MEDS: NON-FORMULARY ITEM 1 UNIT PO (09:27)
[2023-09-30] MEDS: NON-FORMULARY ITEM 5 MG PO ×2 (09:27→20:57)
[2023-09-30] MEDS: LOVENOX 40 MG SC ×2 (09:28→18:22)
[2023-09-30] MEDS: ProAmatine PO ×3 (09:28→17:43)
[2023-09-30] MEDS: COLACE 100 MG PO ×2 (09:29→20:55)
[2023-09-30] MEDS: SENOKOT PO (09:29)
[2023-09-30] MEDS: TYLENOL 650 MG PO ×4 (09:29→20:56)
[2023-09-30] MEDS: SENOKOT 17.2 MG PO ×2 (09:37→20:56)
--- NOTE | 2023-09-30 13:47 | W.PN.UPDATE ---
Update Note
Progress Note Update
Spoke to educational audiologist JEAN CARLOS Small who advised:
Hold off on IV iron
No more platelets given this will make her more hypercoagulable
Transfuse 1UPRBCs which will provide some iron and boost hgb
--have ordered repeat CT to assess hematoma, as it appears more diffuse visually on exam.
--no anticoagulation unless no further bleeding on CT--hold Lovenox for now.
--- NOTE | 2023-09-30 15:16 | CM ---
Discharge Plan of Care: Home with [facility] for VN, PT/OT services. Referral forwarded and accepted.
--- NOTE | 2023-09-30 16:09 | W.PN.ONC ---
Today's Communication / Plan
-
Lengthy discussion with the patient and her , as well as a covering physician for her machine tool technician instructor at [facility]. The CT scan shows shrinkage of the hematoma. She has been on 40 mg twice daily of Lovenox, which is
essentially half full dose anticoagulation, roughly equivalent to Xarelto 10 mg daily. She will get her final dose of Lovenox tonight, and then start Xarelto tomorrow morning at 20 mg. Agree with plans for 1 additional unit of packed cells. I
would not necessarily transfuse her much above 8 g or so. No need for IV iron. Excess of 30 minutes in discussions with various parties, orthopedics also notified.
Impression
Impression
postoperative bleeding in relation to total hip
Polycythemia vera with thrombocytosis, currently on Jakafi and alpha interferon
Atrial fibrillation requiring full dose Xarelto
iron deficiency, medically induced for her polycythemia vera, no need for IV iron.
Plan
Plan
1. Post-operative bleeding - post hip surgery
-hemoglobin is holding at 7.3g/dl
-she is chronically iron deficient in the setting of multiple phlebotomy tx for her MPD over several years
Subjective/Objective
Subjective/Objective
She is feeling reasonably well. She reports no new symptoms. Examination is unchanged.
Vital Signs:
Vital Signs
Temp Pulse Resp BP Pulse Ox
98.3 F 85 17 105/75 99
09/30/23 15:32 09/30/23 15:32 09/30/23 15:32 09/30/23 15:32 09/30/23 15:32
Lab Results:
Laboratory Data
WBC 10.9 10^3/uL (4.8-10.8) H 09/30/23 05:04
Hgb 7.8 g/dL (12.0-16.0) L 09/30/23 05:04
Plt Count 661 10^3/uL (130-400) H 09/30/23 05:04
eGFR > 60.00 09/30/23 05:04
Orders
Orders
Orders From Last 24 Hours
09/30/23 19:00
Enoxaparin Sodium [Lovenox] 40 mg SC NOW ONE
10/01/23 07:00
Rivaroxaban [Xarelto] 20 mg PO QPM
--- NOTE | 2023-09-30 16:35 | W.PN.ORTHO ---
Today's Communication / Plan
-
home Tuesday if stable
repeat CBC daily
Assessment
.
Distal Motor Intact: Yes
Dressing:
Clean, dry and intact.
Assessment:
PCV
Thrombocytosis
Hypercoagulable state
Acute post-op blood loss anemia
--spoke to melter helper JEAN CARLOS Small who advised:
--Hold off on IV iron
--No more platelets given this will make her more hypercoagulable
--Transfuse 1UPRBCs which will provide some iron and boost hgb
--ordered repeat CT to assess hematoma, as it appears more diffuse visually on exam.
--CT showing improvement of hematoma-spoke to radiologist -suggested venous duplex which I have ordered to exclude clot
--will defer to Dr. Singh re further anticoagulation
Plan
.
Surgery / Date: R ANA LILIA Dr. Varela 09/26/23
Activity:
Out of bed.
PT/OT
Discharge Plan: Home w/ VN
Subjective
.
.:
Patient resting comfortably.
Feels tired and weak.
Vital Signs and Labs
.
Vital Signs and Labs:
Lab Results
09/30/23 05:04
09/30/23 05:04
Temp Pulse Resp BP Pulse Ox
98.3 F 85 17 105/75 99
09/30/23 15:32 09/30/23 15:32 09/30/23 15:32 09/30/23 15:32 09/30/23 15:32
Non-invasive Hgb result: 9.1
Physical Exam
-
HEENT: No pallor, cyanosis, or jaundice. Throat clear.
NECK: Supple. No JVD.
RESPIRATORY: Lungs clear to auscultation.
CVS: S1, S2 normal. RRR.� No murmur, rub or gallop.
ABDOMEN: Soft, non-tender. No distension. BS+/normal.
EXTREMITIES: strength equal, no calf pain with palpation
RLE edematous-aquacel with increased bleeding but contained in dressing-distal area of increased ecchymosis
FLOWERS SALESPERSON: AOx3. No focal deficits. mud mixer helper grossly intact
--- NOTE | 2023-09-30 19:00 | SUR.PHASEI ---
Pt received one unit of PRBC's w/o signs or symptoms of transfusion reaction. VS remained stable and Pt remained afebrile. Pt resting quietly w/o complaints.
[2023-10-01] MEDS: TYLENOL PO ×2 (01:11→05:10)
[2023-10-01 03:00] VITALS: BP 157/78
[2023-10-01 07:32] VITALS: BP 161/67
[2023-10-01] MEDS: ProAmatine PO ×3 (07:35→17:01)
[2023-10-01 08:35] LABS: Hematocrit 30.8 % (37.0-47.0); Mean Corp Hgb Conc. 30.8 g/dL (33.0-37.0); Mean Corpuscular Hgb 21.6 pg (27.0-31.0); Mean Platelet Volume 10.5 fL (7.4-10.4); Platelet Count 781 10^3/uL (130-400); Red Cell Dist. Width 25.1 % (11.5-14.5); White Blood Cell Count 13.2 10^3/uL (4.8-10.8)
[2023-10-01 08:47] LABS: Hemoglobin 9.5 g/dL (12.0-16.0)
[2023-10-01] MEDS: SENOKOT PO ×2 (08:47→19:23)
[2023-10-01] MEDS: COLACE PO ×2 (08:47→19:23)
[2023-10-01] MEDS: NON-FORMULARY ITEM 5 MG PO ×2 (08:51→20:42)
[2023-10-01] MEDS: TYLENOL 650 MG PO ×4 (08:51→20:42)
[2023-10-01] MEDS: NON-FORMULARY ITEM 1 UNIT PO (08:52)
[2023-10-01] MEDS: XARELTO 20 MG PO (08:52)
--- NOTE | 2023-10-01 09:31 | W.PN.ORTHO ---
Today's Communication / Plan
-
PCV
Thrombocytosis
Hypercoagulable state
Acute post-op blood loss anemia
--mental health advanced practice nurse JEAN CARLOS Small who advised:
--Hold off on IV iron
--No more platelets given this will make her more hypercoagulable
--Transfused 1UPRBCs which will provide some iron and boost hgb.
--venous deplux US pending for today
--will defer to Dr. Singh re further anticoagulation
--pain controlled with current regimen, reg diet.
--likely stay for observation until 10/02.
Assessment
.
Distal Motor Intact: Yes
Dressing:
Central saturation of dressing without permeation of borders. Surrounding skin without erythema
Plan
.
Surgery / Date: R ANA LILIA Varela 09/26/23
Activity:
Out of bed.
PT/OT
Subjective
.
.:
Patient resting comfortably.
Vital Signs and Labs
.
Vital Signs and Labs:
Lab Results
10/01/23 06:42
09/30/23 05:04
Temp Pulse Resp BP Pulse Ox
98.2 F 76 17 161/67 98
10/01/23 07:32 10/01/23 07:32 10/01/23 07:32 10/01/23 07:32 10/01/23 07:32
Non-invasive Hgb result: 9.1
--- NOTE | 2023-10-01 12:05 | W.PN.ONC ---
Today's Communication / Plan
-
Hb improved post transfusion
Xarelto started today
follow CBC
Impression
Impression
postoperative bleeding in relation to total hip
Polycythemia vera with thrombocytosis, currently on Jakafi and alpha interferon
Atrial fibrillation requiring full dose Xarelto
iron deficiency, medically induced for her polycythemia vera, no need for IV iron.
Plan
Plan
1. Post-operative bleeding - post hip surgery
-hemoglobin is improved - 9.5g/dl today
-she is chronically iron deficient in the setting of multiple phlebotomy tx for her MPD over several years
-Xarelto started today
-cont to monitor CBC
Subjective/Objective
Subjective/Objective
Feels better, no new complaints
Vital Signs:
Vital Signs
Temp Pulse Resp BP Pulse Ox
98.2 F 76 17 161/67 98
10/01/23 07:32 10/01/23 07:32 10/01/23 07:32 10/01/23 07:32 10/01/23 08:00
Lab Results:
Laboratory Data
WBC 13.2 10^3/uL (4.8-10.8) H 10/01/23 06:42
Hgb 9.5 g/dL (12.0-16.0) L D 10/01/23 06:42
Plt Count 781 10^3/uL (130-400) H 10/01/23 06:42
eGFR > 60.00 09/30/23 05:04
Exam: unchanged
[2023-10-01 12:19] VITALS: BP 140/71
[2023-10-01 15:55] VITALS: BP 128/70
[2023-10-01 19:00] VITALS: BP 144/67
[2023-10-01 23:00] VITALS: BP 142/77
[2023-10-02] MEDS: TYLENOL PO ×3 (00:42→20:37)
[2023-10-02 03:00] VITALS: BP 130/71
[2023-10-02 07:14] LABS: Hematocrit 29.1 % (37.0-47.0); Hemoglobin 8.9 g/dL (12.0-16.0); Mean Corp Hgb Conc. 30.6 g/dL (33.0-37.0); Mean Corpuscular Hgb 21.5 pg (27.0-31.0); Mean Corpuscular Volume 70.5 fL (81.0-99.0); Mean Platelet Volume 10.4 fL (7.4-10.4); Platelet Count 667 10^3/uL (130-400); Red Blood Cell Count 4.13 10^6/uL (4.20-5.40); Red Cell Dist. Width 25.7 % (11.5-14.5); White Blood Cell Count 12.1 10^3/uL (4.8-10.8)
[2023-10-02 07:45] VITALS: BP 139/81
--- NOTE | 2023-10-02 08:46 | W.PN.ORTHO ---
Today's Communication / Plan
-
PCV
Thrombocytosis
Hypercoagulable state
Acute post-op blood loss anemia
--Hematology onboard, appreciate assistance in tandem with pts outpatient [employer] network engineer JEAN CARLOS Small; will defer to heme re further anticoagulation
--venous deplux US negative
--pain controlled with current regimen, reg diet.
--likely stay for observation until 10/02. Change dressing prior to DC.
Assessment
.
Distal Motor Intact: Yes
Dressing:
Central saturation of dressing. Borders without erythema
Plan
.
Surgery / Date: R ANA LILIA Varela 09/26/23
Activity:
Out of bed.
PT/OT
Subjective
.
.:
Patient resting comfortably. Reports a headache this AM but resolved.
Vital Signs and Labs
.
Vital Signs and Labs:
Lab Results
10/02/23 06:31
09/30/23 05:04
Temp Pulse Resp BP Pulse Ox
98.2 F 86 17 139/81 96
10/02/23 07:45 10/02/23 07:45 10/02/23 07:45 10/02/23 07:45 10/02/23 07:45
[2023-10-02] MEDS: TYLENOL 650 MG PO ×3 (08:55→16:20)
[2023-10-02] MEDS: SENOKOT PO ×2 (08:55→20:36)
[2023-10-02] MEDS: NON-FORMULARY ITEM 5 MG PO ×2 (08:56→20:37)
[2023-10-02] MEDS: ProAmatine PO ×3 (08:57→17:35)
[2023-10-02] MEDS: NON-FORMULARY ITEM 1 UNIT PO (08:57)
[2023-10-02] MEDS: COLACE PO (08:58)
[2023-10-02 14:45] VITALS: BP 125/78; PULSE 91
--- NOTE | 2023-10-02 14:46 | W.PN.ONC ---
Today's Communication / Plan
-
hemoglobin holding fairly stable - 8.9g/dl
cont xarelto
follow CBC
Impression
Impression
postoperative bleeding in relation to total hip
Polycythemia vera with thrombocytosis, currently on Jakafi and alpha interferon
Atrial fibrillation requiring full dose Xarelto
iron deficiency, medically induced for her polycythemia vera, no need for IV iron.
Plan
Plan
1. Post-operative bleeding - post hip surgery
-hemoglobin is relatively stable today - 8.9g/dl
-she is chronically iron deficient in the setting of multiple phlebotomy tx for her MPD over several years
-Xarelto started yest - cont
-cont to monitor CBC
Subjective/Objective
Subjective/Objective
no new complaints, no SOB, no CP
Vital Signs:
Vital Signs
Temp Pulse Resp BP Pulse Ox
98.2 F 86 17 156/74 96
10/02/23 07:45 10/02/23 07:45 10/02/23 07:45 10/02/23 12:31 10/02/23 07:45
Lab Results:
Laboratory Data
WBC 12.1 10^3/uL (4.8-10.8) H 10/02/23 06:31
Hgb 8.9 g/dL (12.0-16.0) L 10/02/23 06:31
Plt Count 667 10^3/uL (130-400) H 10/02/23 06:31
eGFR > 60.00 09/30/23 05:04
Exam: unchanged
[2023-10-02 15:30] VITALS: BP 137/68
[2023-10-02] MEDS: XARELTO 20 MG PO (17:36)
[2023-10-02 19:00] VITALS: BP 130/71
[2023-10-02] MEDS: COLACE 100 MG PO (20:36)
[2023-10-02 23:00] VITALS: BP 143/63
[2023-10-03] MEDS: TYLENOL PO (00:01)
[2023-10-03 03:00] VITALS: BP 143/75
[2023-10-03] MEDS: TYLENOL 650 MG PO ×3 (04:53→13:01)
--- NOTE | 2023-10-03 05:15 | PTCARENOTE ---
Pt ambulated safely by herself to the bathroom w RW. Pt stated pain is less today, and did not require any PRN pain meds. Assessment ongoing.
[2023-10-03 07:00] LABS: Hematocrit 28.7 % (37.0-47.0); Hemoglobin 8.9 g/dL (12.0-16.0); Mean Corpuscular Hgb 21.8 pg (27.0-31.0); Mean Corpuscular Volume 70.3 fL (81.0-99.0); Platelet Count 620 10^3/uL (130-400); Red Blood Cell Count 4.08 10^6/uL (4.20-5.40); Red Cell Dist. Width 26.6 % (11.5-14.5); White Blood Cell Count 12.4 10^3/uL (4.8-10.8)
[2023-10-03 07:20] VITALS: BP 137/78
[2023-10-03] MEDS: ProAmatine PO ×2 (08:21→12:42)
[2023-10-03] MEDS: NON-FORMULARY ITEM 1 UNIT PO (08:21)
[2023-10-03] MEDS: NON-FORMULARY ITEM 5 MG PO (08:22)
[2023-10-03] MEDS: COLACE 100 MG PO (08:27)
[2023-10-03] MEDS: SENOKOT 17.2 MG PO (08:27)
[2023-10-03 10:15] LABS: Urine Albumin Negative (Neg - Trace); Urine Bilirubin Negative (Negative); Urine Character Clear (Clear); Urine Color Yellow; Urine Glucose Negative (Negative); Urine Ketone Negative (Negative); Urine Leukocyte Negative (Negative); Urine Nitrite Negative (Negative); Urine Occult Blood Negative (Negative); Urine Urobilinogen Negative (Neg - 1+); Urine pH 6.5 (5.0-9.0)
[2023-10-03 11:10] VITALS: BP 151/71
[2023-10-03 11:18] VITALS: BP 156/76; PULSE 72; O2SAT 98
--- NOTE | 2023-10-03 11:59 | CM ---
Addendum entered by Nona Leung 10/04/23 06:22:
VN updated that patient will need twice weekly CBC with results to Dr. Varela, Dr. Small and Dr. Houston.
Original Note:
Reviewed chart and held rounds with PT, OT and nursing. Met with patient at bedside. Discussed discharge plans. The plan continues to be for patient to return home at discharge. She will have support from her . Reviewed VN services including
start of care (currently 10/03), services ordered (PT, OT, SN) and frequency/duration of services. Patient continues to select VN.
Patient has all needed DME at home.
Tiny at VN updated. legal records clerk to fax discharge instructions to VN when complete.
She will use [facility] pharmacy for discharge prescriptions.
--- NOTE | 2023-10-03 12:09 | W.PN.ORTHO ---
Today's Communication / Plan
-
d/c
Assessment
.
Distal Motor Intact: Yes
Dressing:
Clean, dry and intact.
Assessment:
PCV
Thrombocytosis
Hypercoagulable state
Acute post-op blood loss anemia
--spoke to manager asset management JEAN CARLOS Small 09/30/23 who advised:
--Hold off on IV iron
--No more platelets given this will make her more hypercoagulable
--total transfused 1 (6pk) platelets
--Transfused total of 3UPRBCs which will also provide some iron
--ordered repeat CT to assess hematoma, as it appeared more diffuse visually on exam.
--Repeat CT 09/30/23 showing improvement of hematoma-spoke to radiologist -suggested venous duplex which is negative for clot
--deferred to Dr. Singh re further anticoagulation who advised to d/c Lovenox bid and resume full dose Xarelto 20mg hs
--Hgb and platelets stable today-hematology ok to d/c
Afibb-remained in sinus on tele-Diltiazem dose decreased due to hypotension-she will remain on this dose per cardiology and be re-evaluated at f/u OV OP
Plan
.
Surgery / Date: R ANA LILIA Dr. Varela 09/26/23
Activity:
Out of bed.
PT/OT
Subjective
.
.:
Patient resting comfortably.
Vital Signs and Labs
.
Vital Signs and Labs:
Lab Results
10/03/23 06:12
09/30/23 05:04
Temp Pulse Resp BP Pulse Ox
98.9 F 79 18 151/71 95
10/03/23 11:10 10/03/23 11:10 10/03/23 11:10 10/03/23 11:10 10/03/23 11:10
Non-invasive Hgb result: 12.4
Physical Exam
-
HEENT: No pallor, cyanosis, or jaundice. Throat clear.
NECK: Supple. No JVD.
RESPIRATORY: Lungs clear to auscultation.
CVS: S1, S2 normal. RRR.� No murmur, rub or gallop.
ABDOMEN: Soft, non-tender. No distension. BS+/normal.
EXTREMITIES: strength equal, no calf pain with palpation
FLIGHT RADIO OFFICER: AOx3. No focal deficits. diesel engine pipe fitter grossly intact
[2023-10-03 15:00] VITALS: BP 116/63
== END 2023-10-03 16:03 | disposition home health service (06) | DRG 469 ==
LOC: 2 SOUTH 06:23
PROVIDERS: Anesthesiology; Nurse Practitioner Family; Physician Assistant Medical; ADMITTING PHYSICIAN Specialist; FAMILY PHYSICIAN Internal Medicine; OTHER PHYSICIAN Internal Medicine Cardiovascular Disease; OTHER PHYSICIAN Internal Medicine Hematology & Oncology
PROC: 0SR904A Replacement of Right Hip Joint with Ceramic on Polyethylene Synthetic Substitute, Uncemented, Open Approach (ICD-10-PCS; 2023-09-26)
PROC: 30233N1 Transfusion of Nonautologous Red Blood Cells into Peripheral Vein, Percutaneous Approach (ICD-10-PCS; 2023-09-27)
PROC: 30233R1 Transfusion of Nonautologous Platelets into Peripheral Vein, Percutaneous Approach (ICD-10-PCS; 2023-09-27)
DX: M16.11 Unilateral primary osteoarthritis, right hip (principal); K68.3 Retroperitoneal hematoma; M96.830 Postprocedural hemorrhage of a musculoskeletal structure following a musculoskeletal system procedure; D68.59 Other primary thrombophilia; L76.34 Postprocedural seroma of skin and subcutaneous tissue following other procedure; M96.840 Postprocedural hematoma of a musculoskeletal structure following a musculoskeletal system procedure; D62 Acute posthemorrhagic anemia; K91.841 Postprocedural hemorrhage of a digestive system organ or structure following other procedure; I95.81 Postprocedural hypotension; I95.1 Orthostatic hypotension; Y83.8 Other surgical procedures as the cause of abnormal reaction of the patient, or of later complication, without mention of misadventure at the time of the procedure; D45 Polycythemia vera; D75.839 Thrombocytosis, unspecified; E61.1 Iron deficiency; E66.9 Obesity, unspecified; I48.0 Paroxysmal atrial fibrillation; I10 Essential (primary) hypertension; M81.0 Age-related osteoporosis without current pathological fracture; Z68.29 Body mass index [BMI] 29.0-29.9, adult; Z87.891 Personal history of nicotine dependence; Z79.01 Long term (current) use of anticoagulants
CPT/HCPCS: 36415; 73502; 74176; 80048; 80053; 81003; 81015; 82306; 82962; 83036; 84132; 84443; 85014; 85018; 85025; 85027; 86850; 86900; 86901; 86920; 87070; 93005; 93971; 97110; 97116; 97162; 97166; 97530; 97535; C1713; C1776; P9016; P9073

== ENCOUNTER 2023-10-05 00:40 | Observation (INO) | payer MEDICARE, OTHER, SELFPAY ==
[2023-10-04 20:34] VITALS: BP 183/94
[2023-10-04 21:09] VITALS: BP 159/100
[2023-10-04 21:15] LABS: % Basophils 0.6 % (0-2); % Eosinophils 3.2 % (0-6); % Immature Granulocytes 1.8 % (0-0.5); % Lymphocytes 5.3 % (20.5-51.1); % Monocytes 5.7 % (1.7-9.3); % Neutrophils 83.4 % (42.2-75.2); Absolute Basophils 0.1 10^3/uL (0-0.2); Absolute Eosinophils 0.5 10^3/uL (0-0.7); Absolute Immature Granulocytes 0.3 10^3/uL (0-0.05); Absolute Lymphocytes 0.7 10^3/uL (1.2-3.4); Absolute Monocytes 0.8 10^3/uL (0.1-0.6); Absolute Neutrophils 11.7 10^3/uL (1.4-6.5); Hemoglobin 10.3 g/dL (12.0-16.0); Mean Corp Hgb Conc. 31.2 g/dL (33.0-37.0); Mean Corpuscular Hgb 22.5 pg (27.0-31.0); Mean Corpuscular Volume 72.2 fL (81.0-99.0); Mean Platelet Volume 10.1 fL (7.4-10.4); Nucleated Red Blood Cells % 0 %; Platelet Count 647 10^3/uL (130-400); Red Blood Cell Count 4.57 10^6/uL (4.20-5.40); Red Cell Dist. Width 27.2 % (11.5-14.5)
[2023-10-04 21:29] LABS: ALT (SGPT) 217 U/L (0-35); AST (SGOT) 190 U/L (14-36); Alkaline Phosphatase 187 U/L (38-126); Blood Urea Nitrogen 20 mg/dl (7-17); Calcium 9.8 mg/dl (8.4-10.2); Carbon Dioxide 24 mmol/L (22-30); Chloride 101 mmol/L (98-107); Glucose 104 mg/dl (70-99); Potassium 4.3 mmol/L (3.5-5.1); Sodium 132 mmol/L (135-145); Total Protein 6.1 g/dl (6.3-8.2); eGFR > 60.00
[2023-10-04 22:00] VITALS: BP 129/63
--- NOTE | 2023-10-04 22:05 | ED.GENMED ---
History of Present Illness
General
Chief Complaint: Post Operative Problem(s)
Source: patient
Exam Limitations: none
Time Seen by Provider: 10/04/23 21:04
History of Present Illness
History of Present Illness:
This is a 73 year old female that comes in with c/o drainage from her right hip. States that she was just discharge yesterday from the hospital after having a right hip replacement. States that she has been going great and walked about 5 times
today. States that tonight she felt that her leg was hard when she was walking and she reached down ad her dressing was wet. States that it was clear drainage not bloody.
Past History
Past History
ED Past Medical History: Arrthythmia (Paroxysmal atrial fibrillation, SVT), HTN and Other (Diverticulosis/diverticulitis, Clostridium difficile diarrhea 2013,Osteoarthritis, Vertigo, IBS, polycythemia vera)
ED Past Surgical History: Cardiac (Radiofrequency ablation of A. fib 2006), Cholecystectomy, Gynecological, Orthopedic (left and right hip replacment), Tonsilectomy and Other (left breast Papiloma)
Social History
Tobacco: Former smoker (Quit 1989)
Alcohol: Daily (1 glasses of wine)
Drug: None
Personal:
Living: with family
Employment: Employed
Family History
Family History: Adopted
Review of Systems
Review of Systems
All Other Systems: ROS reviewed and negative except as documented in HPI and ROS
Constitutional: Reports no symptoms; Denies fever or chills
EENT: Reports no symptoms
Respiratory: Reports no symptoms; Denies cough or trouble breathing
Cardiac: Reports no symptoms; Denies chest pain
ABD/GI: Reports no symptoms; Denies abdominal pain, nausea, vomiting or diarrhea
: Reports no symptoms; Denies dysuria, frequency or urgency
Musculoskeletal: Reports other (Drainage form right hip)
Skin: Reports no symptoms
Neurological: Reports headache; Denies dizzy
Psychiatric: Reports no symptoms
Phy Exam
General Physical Exam
General Presentation: well appearing and no apparent distress
General age: appears stated age
General Skin: warm and dry
General Habitus: elderly
General Mental: alert
General Hydration: appears well hydrated
ENT Exam
ENT Exam: TM's normal, pharynx normal and neck supple
Eye Exam
Eye Exam: EOMI
Cardiovascular Exam
Cardiovascular Exam: regular rate/rhythm and normal peripheral pulses
Pulmonary Exam
Pulmonary Exam: lungs clear, no respiratory distress, no rales, chest non tender, no crackles, no rhonchi, no wheezing and no cough
Gastrointestinal Exam
Gastrointestinal Exam: normal bowel sounds, non tender, soft, no organomegaly, no pulsatile mass and non distended
Musculoskeletal Exam
Musculoskeletal Exam: edema (Right leg with hematoma of the right hip into the right thigh. Nonpitting) and other (right hip incision line with catrina noted negative for any redness or drainage. Dressing is wet)
Skin Exam
Skin Exam: normal color, warm/dry, no rash, no petechia and other (Contusion right hip into the thigh)
Psychiatric Exam
Psychiatric Exam: normal mood/affect
Course
Orders/Labs/Results
Orders:
Orders
10/04/23 21:07
Acetaminophen Urgent
Comment: ADD ON
CMP [Comprehensive Metabolic Panel] Urgent
Complete Blood Count/With Diff Urgent
Direct Bilirubin Urgent
Comment: ADD ON
Lipase Urgent
Comment: ADD ON
10/04/23 22:04
Add On- LAB Urgent
Tests Added?: Lipase, Direct tresa
10/04/23 22:36
Add On- LAB Urgent
Tests Added?: acetaminophin
Abnormal Lab Results
10/04/23
21:07
WBC 14.0 H 10^3/uL
(4.8-10.8)
Hgb 10.3 L g/dL
(12.0-16.0)
Hct 33.0 L %
(37.0-47.0)
MCV 72.2 L fL
(81.0-99.0)
MCH 22.5 L pg
(27.0-31.0)
MCHC 31.2 L g/dL
(33.0-37.0)
RDW 27.2 H %
(11.5-14.5)
Plt Count 647 H 10^3/uL
(130-400)
Abs Immat Gran (auto) 0.3 H 10^3/uL
(0-0.05)
Absolute Neuts (auto) 11.7 H 10^3/uL
(1.4-6.5)
Absolute Lymphs (auto) 0.7 L 10^3/uL
(1.2-3.4)
Absolute Monos (auto) 0.8 H 10^3/uL
(0.1-0.6)
Immature Gran % 1.8 H %
(0-0.5)
Neutrophils % 83.4 H %
(42.2-75.2)
Lymphocytes % 5.3 L %
(20.5-51.1)
Sodium 132 L mmol/L
(135-145)
BUN 20 H mg/dl
(7-17)
Glucose 104 H mg/dl
(70-99)
Total Bilirubin 3.0 H mg/dl
(0.2-1.3)
Direct Bilirubin 1.0 H mg/dl
(0.0-0.4)
AST 190 H U/L
(14-36)
ALT 217 H U/L
(0-35)
Alkaline Phosphatase 187 H U/L
(38-126)
Total Protein 6.1 L g/dl
(6.3-8.2)
Lipase 452 H U/L
(23-300)
Acetaminophen < 10 L ug/ml
(10-30)
10/04/23 21:07
10/04/23 21:07
Leukocytosis, H/H improved from prior labs. Plt elevated. Sodium slightly low. Dehydration. Glucose nonfasting. Total tresa elevation. AST/ALT elevation. Alk phos elevation. Total protein slightly low.
Direct tresa normal at 1.0, LIpase slightly elevated at 452, Tylenol <10.
Vital Signs
Initial and Last Documented VS:
Initial Vital Signs
Temp Pulse Resp BP Pulse Ox
99.0 F 94 18 183/94 97
10/04/23 20:34 10/04/23 20:34 10/04/23 20:34 10/04/23 20:34 10/04/23 20:34
Last Documented Vital Signs
Temp Pulse Resp BP Pulse Ox
99.0 F 64 20 148/69 98
10/04/23 20:34 10/04/23 23:11 10/04/23 23:11 10/04/23 23:00 10/04/23 23:11
MDM/Problems Addressed
Differential Diagnosis Includes:
Seroma rupture, Right hip infection
MDM/Problems Addressed:
This is a 73 year old female that comes in with c/o drainage from the right hip. States that the drainage was clear.
Will get labs and Speak with Orthopedics.
Back into see patient. Explained that her blood work shows that her Liver enzymes are elevated and this is new when compared with prior labs. States that they were giving her Extra strength Tylenol around the clock when she was here. Will get Direct
tresa and lipase. Patient had her gallbladder removed and recently had a CT which was negative for any ductal dilation. Will get Tylenol and Direct tresa and if elevated will admit patient for further evaluation.
Will admit Hospitalist notified.
Chronic conditions affecting care:
NA
Acute Exacerbation and/or Progression of Chronic Illness:
NA
*Pulse Oximetry
Patient hypoxic: no
*EKG
Interpreted by ED Provider?: NA
Rate: EKG- N/A
*Jig Worker Interpretation
Rate: Jig Worker- N/A
*Critical Care Note
Total Time (30-74mins, 75-104mins- exclusive of procedures): Not Applicable
ED Attending Note
-
Portions of this chart may have been created with voice recognition software.� Occasional wrong word or��sound alike� substitutions may have occurred due to the inherent limitations of voice recognition software.
Discharge Plan
Departure
Patient Disposition: Admit
Date of Disposition: 10/04/23
Time of Disposition: 23:31
Admit to: Med/Surg
Presentation/result/management discussed w/ accepting MD/DO: Hospitalist
Patient with high blood pressure during this ER visit?: Yes
Condition: Good
Covid-19: Not Applicable
Discharge Problem:
Elevated liver enzymes
Prescriptions:
No Action
Jakafi 5 mg Tablet
5 mg PO BID
Besremi 500 mcg/mL Syringe
75 mcg SC Q2W
mupirocin 2 % ointment
1 applic topical BID Qty: 1 0RF
Patient Comments:
Patient administered this am on 09/26/23 @ 0345. Patient started this medication application on 09/23/23 in [facility] morning.
ergocalciferol (vitamin D2) 50 mcg (2,000 unit) tablet
50 mcg PO WEEKLY Qty: 20 3RF
Patient Comments:
last taken weeks ago per patient.
Xarelto 20 MG tablet
20 mg PO QPM
Hold Instructions: Resume on 09/30/23. 10mg nightly until 09/30/23--then resume home dose 20mg pm
docusate sodium [Colace] 100 mg capsule
100 mg PO BID Qty: 1 0RF
Saccharomyces boulardii [Florastor] 250 mg capsule
250 mg PO BID Qty: 1 0RF
magnesium hydroxide [Milk of Magnesia] 400 mg/5 mL suspension
30 ml PO HS PRN (Reason: Constipation) Qty: 1 0RF
gabapentin 300 mg capsule
300 mg PO HS Qty: 10 0RF
sennosides [Senokot] 8.6 mg tablet
17.2 mg PO BID Qty: 2 0RF
tramadol 50 mg tablet
50 mg PO Q6H PRN (Reason: 1 tab moderate pain, 2 if severe) Qty: 30 0RF
Rx Instructions:
ongoing therapy
ondansetron 4 mg tablet,disintegrating
4 mg PO Q6H PRN (Reason: n/v) Qty: 20 0RF
Rx Instructions:
take 1/2h b/f pain med if recurrent nausea
allow to dissolve in mouth w/o water
acetaminophen [Tylenol Extra Strength] 500 mg Tablet
1,000 mg PO QID Qty: 0 0RF
diltiazem HCl [Cardizem CD] 180 mg capsule,extended release 24hr
180 mg PO DAILY Qty: 0 0RF
Referrals:
Griselda Sargent MD [Family Provider] -
Interventions
Interventions:
*Risk Screen - Suicide Last Done: 10/04/23 20:34
*General Assessment Last Done: 10/04/23 20:34
*Neglect/Abuse Screening Last Done: 10/04/23 20:34
ED-Skin Assessment Last Done: 10/04/23 21:40
Discharge Date and Time
Print Language: FAROESE
[2023-10-04 23:00] VITALS: BP 148/69
[2023-10-04 23:08] LABS: Acetaminophen < 10 ug/ml (10-30); Lipase 452 U/L (23-300)
[2023-10-05] VITALS (10 sets, daily range): BP systolic 131–151; BP diastolic 61–71; BMI 30.6
--- NOTE | 2023-10-05 00:16 | HPS.HSE ---
Family Physician
-
Family Physician: Griselda Sargent
Chief Complaint
-
Drainage form Rt Hip surgical site
History of Present Illness
73M HX Polycythemia vera with thrombocytosis on on xarelto, recent s/p R ANA LILIA complicated with poorly defined hematom at Rt thigh (Dr. Varela 09/26/23) DC'd yesterday pw drainage from Rt Hip and noted wet dressing.
Drainage was clear and not bloody.
She is doing well with ambulatory function.
Hemodynamically stable
Noted significant new abn LFTs request admission
Medical History
Past Medical History
Past Medical History: Reports Other
Additional Past Medical History:
Arrthythmia (Paroxysmal atrial fibrillation, SVT), HTN and Other (Diverticulosis/diverticulitis, Clostridium difficile diarrhea 2013,Osteoarthritis, Vertigo, IBS, polycythemia vera
Past Surgical History: Reports Other
Additional Past Surgical History:
Cardiac (Radiofrequency ablation of A. fib 2006), Cholecystectomy, Gynecological, Orthopedic (left and right hip replacment), Tonsilectomy and Other (left breast Papiloma)
Social History
Tobacco: Non-smoker
Drug: None
Family History
Family History: Not pertinent
Allergies / Home Medications
Allergies reflects when Allergies were last updated in [employer].
Home Medications with original date entered in [employer]
Allergy/Medication List:
Allergies
Allergy/AdvReac Type Severity Reaction Status Date / Time
budesonide [Budesonide] Allergy rash, hives Verified 10/04/23 21:12
Cephalosporins Allergy Unknown Verified 10/04/23 21:12
ciprofloxacin [From Cipro] Allergy C.DIFF Verified 10/04/23 21:12
ciprofloxacin HCl Allergy C.DIFF Verified 10/04/23 21:12
[From Cipro]
clindamycin Allergy C-DIFF Verified 10/04/23 21:12
epinephrine [Epinephrine] Allergy Pt not Verified 10/04/23 21:12
sure if
related to
SVT issue
or allergy
hydromorphone HCl Allergy 'dizziness, Verified 10/04/23 21:12
[From Dilaudid] pass out'
latex Allergy redness at Verified 10/04/23 21:12
site
levofloxacin [From Levaquin] Allergy dizzy/confu Verified 10/04/23 21:12
gino
metronidazole [From Flagyl] Allergy dizzy/confu Verified 10/04/23 21:12
gino
penicillin V Allergy Hives/RASH Verified 10/04/23 21:12
Penicillins Allergy Hives/RASH Verified 10/04/23 21:12
triamcinolone acetonide Allergy Rash/HIVES Verified 10/04/23 21:12
[From Nasacort]
Home Medications
ropeginterferon [id number] 500 mcg/mL subcutaneous syringe (Besremi) 75 mcg SC Q2W Biological Response Modul 09/07/23
ruxolitinib 5 mg tablet (Jakafi) 5 mg PO BID Antineoplastic Agent 09/07/23
ergocalciferol (vitamin D2) 50 mcg (2,000 unit) tablet 50 mcg PO WEEKLY vitamin D deficiency #20 tabs 09/16/23
Saccharomyces boulardii 250 mg capsule (Florastor) 250 mg PO BID #1 cap 09/27/23
docusate sodium 100 mg capsule (Colace) 100 mg PO BID stool softner #1 cap 09/27/23
rivaroxaban 20 mg tablet (Xarelto) 20 mg PO QPM Blood Clot Prevention/Tx 09/27/23
diltiazem HCl 180 mg capsule,extended release 24 hr (Cardizem CD) 180 mg PO DAILY Heart Disease/Condition #0 caps 09/28/23
Review of Systems
-
Constitutional: Reports No Symptoms
EENT: Reports No Symptoms
Respiratory: Reports No Symptoms
Cardiac: Reports No Symptoms
Abdomen/GI: Reports No Symptoms
: Reports No Symptoms
Musculoskeletal: Reports See HPI
Skin: Reports No Symptoms
Neurological: Reports No Symptoms
Endocrine: Reports No Symptoms
Hematologic/Lymphatic: Reports No Symptoms
Psych: Reports No Symptoms
Physical Exam
Vital Signs
Vital Signs
Temp Pulse Resp BP Pulse Ox
99.0 F 64 20 148/69 98
10/04/23 20:34 10/04/23 23:11 10/04/23 23:11 10/04/23 23:00 10/04/23 23:11
Physical Exam
General: Well Developed, Well Nourished and No Apparent Distress
HEENT: NormoCephalic, Anicteric and Moist mucous membranes
Respiratory: Clear; No Wheezes, Rales or Rhonchi
Cardiac: S1/S2 and Regular Rhythm
GI: Soft, Non Tender and Non Distended
Musculoskeletal: No Edema
Neuro: AO x 3
Psych: Calm
Laboratory Results
-
10/04/23 21:07
10/04/23 21:07
Laboratory Results
Total Bilirubin 3.0 mg/dl (0.2-1.3) H 10/04/23 21:07
AST 190 U/L (14-36) H 10/04/23 21:07
ALT 217 U/L (0-35) H 10/04/23 21:07
Alkaline Phosphatase 187 U/L (38-126) H 10/04/23 21:07
Lipase 452 U/L (23-300) H 10/04/23 21:07
Data Reviewed
-
Lab Data: Labs Reviewed by me
Old Records: Reviewed
Impression/Plan
-
Reviewed VS: T 99 BP 183/94 --> 150/70
Data
WCC 14 - was 12.4 on 10/03/23
Hgb 10.3 -was 8.9 on 10/03/23
Plt 647 - baseline 600- 780
Na 132 - was 132 on 09/30/23
BUN 20
TB 3 - 0.6 on 09/12/23
DB 1.0
AST 190 - was 35on 09/12/23
ALT 217 - was 34 on 09/12/23
AKP 187 - was 68 on 09/12/23
Lipase 452
Acetaminophen < 10
12/01/17 TTE
Normal left ventricular size, wall thickness and systolic function.
No regional wall motion abnormalities are seen.
Estimated ejection fraction is 60%.
Normal diastolic function.
Normal right ventricular size and function.
Normal left atrium.
No significant valvular disease.
No prior study available for comparison.
09/30/23 CT abd/pelvis Wo Iv Cont
- Post RIGHT hip arthroplasty with significantly improved appearance of poorly defined hematomas within the anterior right thigh, right gluteal musculature, and along the prosthesis.
- Grossly unchanged elongated postoperative seroma.
- Significant soft tissue edema and stranding within the proximal right thigh.
Last hospitalist admission: 2018
ASSESSMENT & PLAN
Pending Rx reconciliation
Acute hepatocellular pattern abn LFTs
DDX: acute ischemic liver injury due to hypotensive episode while on Diltiazem on last admission vs. drug induced liver injury from acetaminophen ?
- Held Tramadol
- US Abdomen complete in AM
- Trend LFTs
- GI consult
POD 9 R ANA LILIA complicated with poorly defined hematoma at Rt thigh (Dr. Varela 09/26/23) DC'd yesterday
Drainage from Rt Hip was clear and not bloody.
- PT/OT
- ER AP discussed with Dr Mcclellan - from Ortho stand point , she can go home !
HX Polycythemia vera with thrombocytosis, currently on Jakafi and alpha interferon
Medically induced Iron deficiency, for polycythemia vera, no need for IV iron per creative services specialist on last admission
- f/u Soil Engineer JEAN CARLOS Small
In NSR
HX Prx AF requiring full dose Xarelto
DVT Px: on Xarelto
Code: Full
IP TLM
--- NOTE | 2023-10-05 02:35 | PTCARENOTE ---
Received pt from ED RN. AAOx3, anxious. NSR on the monitor. On RA O2 sat 90%, lungs clear. BSCx1. R hip dressing intact. CHG bath provided. Pt is laying comfortable in bed with call cortez in reach.
[2023-10-05 04:23] LABS: Mean Corpuscular Hgb 22.2 pg (27.0-31.0); Mean Corpuscular Volume 71.4 fL (81.0-99.0); Mean Platelet Volume 10.5 fL (7.4-10.4); Platelet Count 618 10^3/uL (130-400); Red Blood Cell Count 4.06 10^6/uL (4.20-5.40); Red Cell Dist. Width 27.1 % (11.5-14.5); White Blood Cell Count 11.1 10^3/uL (4.8-10.8)
[2023-10-05 04:48] LABS: ALT (SGPT) 201 U/L (0-35); AST (SGOT) 137 U/L (14-36); Albumin 3.4 g/dl (3.5-5.0); Alkaline Phosphatase 158 U/L (38-126); Blood Urea Nitrogen 16 mg/dl (7-17); Calcium 9.3 mg/dl (8.4-10.2); Carbon Dioxide 25 mmol/L (22-30); Chloride 104 mmol/L (98-107); Estimated Creatinine Clearance 69 ml/min; Glucose 95 mg/dl (70-99); Lipase 360 U/L (23-300); Potassium 4.5 mmol/L (3.5-5.1); Sodium 134 mmol/L (135-145); Total Bilirubin 2.3 mg/dl (0.2-1.3); Total Protein 5.5 g/dl (6.3-8.2); eGFR > 60.00
[2023-10-05 06:12] LABS: Direct Bilirubin 0.7 mg/dl (0.0-0.4)
--- NOTE | 2023-10-05 07:39 | W.PN.HOSP.TC ---
Today's Communication/Plan
-
see plan
Assessment / Plan
Assessment / Plan
Ms. Adore Luna is a 73 yo woman with hx PV with thrombocytosis on Xarelto, POD 9 right ANA LILIA complicated with hematoma discharged 10/03 represents to the ER with drainage (cleared by ortho for discharge again) but found to have elevated liver
enzymes.
Acute hepatocellular pattern abn LFTs
-differential includes ischemia from hypotensive episode versus drug reaction versus other etiology hepatitis. patient was taking RTC tylenol; tylenol level neg on admit
- Held Tramadol
- US Abdomen complete in AM
- order hepatitis panel, iron studies, TSH
- Trend LFTs
- GI consult
POD 9 R ANA LILIA complicated with poorly defined hematoma at Rt thigh (Dr. Varela 09/26/23) DC'd yesterday
Drainage from Rt Hip was clear and not bloody.
- PT/OT
- ER AP discussed with Dr Mcclellan - from Ortho stand point , she can go home
HX Polycythemia vera with thrombocytosis, currently on Jakafi and alpha interferon
Medically induced Iron deficiency, for polycythemia vera, no need for IV iron per green building materials distributor on last admission
- f/u College Advisor [employer] Dr. Ann Small
- resume Xarelto (did not take yesterday - will give this AM)
In NSR
HX Prx AF requiring full dose Xarelto
DVT Px: on Xarelto
Code: Full
IP TLM
Anticipated Discharge: 24 - 48 hours
Subjective/Interval History
-
Date of Service: October 05, 2023
patient states drainage has improved
denies abdominal pain
no nausea/vomiting
Objective Data
-
Labs:
Laboratory Results
10/04/23 10/05/23
21:07 04:05
WBC 14.0 H 11.1 H
Hgb 10.3 L 9.0 L
Hct 33.0 L 29.0 L
Plt Count 647 H 618 H
Sodium 132 L 134 L
Potassium 4.3 4.5
Chloride 101 104
Carbon Dioxide 24 25
BUN 20 H 16
Creatinine 0.9 0.7
Glucose 104 H 95
Calcium 9.8 9.3
Total Bilirubin 3.0 H 2.3 H
AST 190 H 137 H
ALT 217 H 201 H
Alkaline Phosphatase 187 H 158 H
Vital Signs:
Vital Signs
Temp Pulse Resp BP Pulse Ox
98.5 F 79 17 136/61 91
10/05/23 04:00 10/05/23 06:00 10/05/23 06:00 10/05/23 04:01 10/05/23 06:00
I&O
10/04/23 10/05/23 10/06/23
06:59 06:59 06:59
Intake Total 100 / 100
Balance 100 / 100
Review of Systems
-
History Source: Patient
All other systems: Reviewed and negative
Physical Exam
-
General: No Apparent Distress
HEENT: PERRLA
Respiratory: Clear to Auscultation; Negative Wheezes
Cardiac: Regular Rhythm and S1/S2
GI: Soft and Nontender
Musculoskeletal: No Edema
Skin: Other (right thigh with bandage mild oozing, no bloody drainage )
Neuro: AO x 3
Psych: Calm and Anxious
Data Reviewed
-
Diagnostic Radiology: Report Reviewed by me
Labs: Labs Reviewed by me
--- NOTE | 2023-10-05 08:02 | CON.GI ---
Addendum entered and electronically signed by Marika More DO 10/05/23 13:14:
Patient seen and examined independently of medicine resident. I agree with her note with my additions below
Overall, Adore is a 73-year-old female with history of polycythemia vera on Jakafi and besremi, paroxysmal A-fib on Xarelto, prior C. difficile in 2013 who was recently discharged from the hospital following a right hip replacement on 09/26/2023 and
presented to the emergency room with increased clear drainage from her surgical site. GI was consulted for abnormal LFTs found incidentally in the emergency room.
Review of her liver enzymes from her portal from [facility] as well as from [facility] showed normal liver enzymes but she states that she has blood work every couple of weeks at [facility]. She is never had abnormal
liver enzymes. She has no abdominal pain.
Her postop was complicated by thrombocytosis, hematoma postop blood loss for which she received 3 units of packed red blood cells and 1 platelet transfusion. She was also taking Tylenol [id number] while hospitalized. Her CT scans do show
improving hematoma. Her hemoglobin has been stable.
# Abnormal liver enzymes -pattern is majority hepatocellular with an ALT 9 times upper limit of normal also with mildly elevated indirect bilirubin, prior liver enzymes have been normal
--- Total bilirubin 2.3, direct bilirubin 0.7, GGT 199, AST 137, ALT 201, alkaline phosphatase 158
-- This is likely a combination of hematoma plus DILI
-- Her overall direct bilirubin is the most normal
-- She has no abdominal pain. Her abdominal ultrasound of the liver is normal. Will check a hepatitis panel for completeness
-- Avoid any hepatotoxic medications including Tylenol. She is not on a statin. Was only on antibiotics for couple of days postop.
-- I have contacted her public relations senior associate at [facility] to ask if she would like me to hold her Tuesday dose of besremi as it can worsen LFTs
-- trend LFTs
Original Note:
Consultation
-
Date/Time Consultation Performed: 10/05/23
Reason for Consultation: abnormal LFTs
Medical History
Chief Complaint / HPI
Chief Complaint: abnormal LFTs
History of Present Illness:
73 year old female with past medical history of polycythemia vera, paroxysmal afib, diverticulosis, diverticulitis (2013), cdiff (2014), IBS, who recently discharged from the hospital following a right hip replacement on 09/26/23 and presented to the
ED yesterday for increased clear drainage from her surgical site. GI was consulted to evaluate abnormal LFTs found incidentally on CMP in ED. Her postoperative course was complicated by polycythemia vera, thrombocytosis, hematoma and postop blood
loss, for which she received 3 units of pRBC and 1 (6pk) platelet transfusion. She reports taking tylenol 'around the clock' while hospitalized. Prior to discharge, her exam and CT scans showed improving hematoma, negative ally duplex ultrasound,
and stable hgb.
Prior to her most recent surgery, she was in her usual state of health. Her polycythemia vera was diagnosed in Nov 2017 (follows at [place]), and was initially managed with 500mL phlebotomy every 2 months to induce iron deficiency. Since starting
besremi (interferon alpha) 1 year ago, her phlebotomy frequency has decreased to 3 times per year. 3 months ago, she started jakafi (tyrosine kinase inhibitor) and notes improvement in her symptoms. She also takes xarelto for her history of atrial
fibrillation, which is not new. Her takes diltiazem for hypertension, and the dose was recently decreased from 240mg to 180mg due to low blood pressures during her most recent hospitalization.
Besides her concern regarding drainage from her surgical site and abnormal liver enzymes, she feels well and has been doing well with PT per her report. She denies abdominal pain, cramping, bloating, reflux, nausea, vomiting, constipation, diarrhea.
Her appetite has been good, and she tolerating normal PO diet. Her last bowel movement was Sunday 10/01, and she reports her typical bowel movements occur daily and her stool is well-formed and easy to pass. She reports occasional small spot of blood
on toiletpaper from her hemorrhoids, and denies bloody or black stools. She denies daily use of NSAIDs. She denies fevers, chills, unintentional weight loss, light headedness, chest pain, shortness of breath, dysuria/hematuria. She denies any
history of abnormal liver enzymes.
Past Medical History
Past Medical History: Arrhythmias (paroxysmal afib, SVT), HTN and Other (diverticulosis, diverticulitis 2013, cdiff 2013, IBS, polycythemia vera, OA, vertigo)
Past Surgical History: Cholecystectomy (2004), Gynecological (cervical cryosurgery), Orthopedic (L hip replacement 2014, R hip replacement 09/26/23), Tonsilectomy and Other (L breast papilloma)
Social History
Tobacco: Former Smoker (quit in )
Alcohol: Daily (1 drink per day)
Drug: None
Personal:
Family History
Family History: Adopted (recently contacted with biologic family, reports heart disease and high cholesterol; uncertain of other medical family history)
Allergies / Home Medications
Allergy/AdvReac Type Severity Reaction Status Date / Time
budesonide [Budesonide] Allergy rash, hives Verified 10/04/23 21:12
Cephalosporins Allergy Unknown Verified 10/04/23 21:12
ciprofloxacin [From Cipro] Allergy C.DIFF Verified 10/04/23 21:12
ciprofloxacin HCl Allergy C.DIFF Verified 10/04/23 21:12
[From Cipro]
clindamycin Allergy C-DIFF Verified 10/04/23 21:12
epinephrine [Epinephrine] Allergy Pt not Verified 10/04/23 21:12
sure if
related to
SVT issue
or allergy
hydromorphone HCl Allergy 'dizziness, Verified 10/04/23 21:12
[From Dilaudid] pass out'
latex Allergy redness at Verified 10/04/23 21:12
site
levofloxacin [From Levaquin] Allergy dizzy/confu Verified 10/04/23 21:12
gino
metronidazole [From Flagyl] Allergy dizzy/confu Verified 10/04/23 21:12
gino
penicillin V Allergy Hives/RASH Verified 10/04/23 21:12
Penicillins Allergy Hives/RASH Verified 10/04/23 21:12
triamcinolone acetonide Allergy Rash/HIVES Verified 10/04/23 21:12
[From Nasacort]
�Medication �Instructions �Recorded
ropeginterferon [id number] 500 75 mcg SC Q2W Biological Response 09/07/23
mcg/mL subcutaneous syringe Modul
(Besremi)
ruxolitinib 5 mg tablet (Jakafi) 5 mg PO BID Antineoplastic Agent 09/07/23
ergocalciferol (vitamin D2) 50 mcg 50 mcg PO WEEKLY vitamin D 09/16/23
(2,000 unit) tablet deficiency #20 tabs
Saccharomyces boulardii 250 mg 250 mg PO BID #1 cap 09/27/23
capsule (Florastor)
docusate sodium 100 mg capsule 100 mg PO BID stool softner #1 cap 09/27/23
(Colace)
rivaroxaban 20 mg tablet (Xarelto) 20 mg PO QPM Blood Clot 09/27/23
Prevention/Tx
diltiazem HCl 180 mg 180 mg PO DAILY Heart 09/28/23
capsule,extended release 24 hr Disease/Condition #0 caps
(Cardizem CD)
Review of Systems
-
All other systems: A 12 pt ROS was Negative except as stated above in HPI
Vital Signs
Temp Pulse Resp BP Pulse Ox
98.5 F 79 17 136/61 91
10/05/23 04:00 10/05/23 06:00 10/05/23 06:00 10/05/23 04:01 10/05/23 06:00
Physical Exam
Exam
General: Sitting comfortably in bed, no acute distress. Well-appearing. Easily conversing.
HEENT: Head normocephalic, atraumatic. Sclera anicteric.
Heart: Regular rate and rhythm.
Lungs: Nonlabored breathing. Anterior lung monge clear and equal to auscultation bilaterally.
GI: Normal bowel sounds present. Abdomen soft, nontender, nondistended. No rebound, rigidity, guarding. No palpable hepatomegaly.
Extremities: Right lateral thigh with poorly defined hematoma. Dressing intact over surgical site. Trace edema of right lower extremity > left. Extremities warm and well perfused.
Results
WBC 11.1 10^3/uL (4.8-10.8) H 10/05/23 04:05
Hgb 9.0 g/dL (12.0-16.0) L 10/05/23 04:05
Hct 29.0 % (37.0-47.0) L 10/05/23 04:05
MCV 71.4 fL (81.0-99.0) L 10/05/23 04:05
Plt Count 618 10^3/uL (130-400) H 10/05/23 04:05
Absolute Neuts (auto) 11.7 10^3/uL (1.4-6.5) H 10/04/23 21:07
Sodium 134 mmol/L (135-145) L 10/05/23 04:05
Potassium 4.5 mmol/L (3.5-5.1) 10/05/23 04:05
Chloride 104 mmol/L (98-107) 10/05/23 04:05
Carbon Dioxide 25 mmol/L (22-30) 10/05/23 04:05
BUN 16 mg/dl (7-17) 10/05/23 04:05
Creatinine 0.7 mg/dL (0.6-1.0) 10/05/23 04:05
Calcium 9.3 mg/dl (8.4-10.2) 10/05/23 04:05
Total Bilirubin 2.3 mg/dl (0.2-1.3) H 10/05/23 04:05
AST 137 U/L (14-36) H 10/05/23 04:05
ALT 201 U/L (0-35) H 10/05/23 04:05
Alkaline Phosphatase 158 U/L (38-126) H 10/05/23 04:05
Lipase 360 U/L (23-300) H 10/05/23 04:05
10/04/23 -> 10/05/23
Total bili 3.0 -> 2.3
Direct bili 1.0 -> 0.7
AST 190 -> 137
ALT 217 -> 201
alk phos 187 -> 158
Lipase 452 -> 360
09/12/23:
Tbili 0.6, AST 35, ALT 34, alk phos 68
Diagnostic Image Results:
Abdomen/Pelvis CT 09/30/23:
LIVER: Within normal limits.
GALLBLADDER: Surgically absent.
BILE DUCTS: Within normal limits.
PANCREAS: Within normal limits.
SPLEEN: Mildly enlarged measuring 14.2 cm in length.
ADRENALS: Within normal limits.
KIDNEYS/URETERS: Within normal limits.
BOWEL: No obstruction or wall thickening. Mild to moderate sigmoid diverticulosis.
PERITONEUM: No ascites or free air.
REPRODUCTIVE: 18 mm calcified/degenerated fibroid within the right uterus. No adnexal masses.
BLADDER: Not well evaluated, obscured by beam hardening artifact.
IMPRESSION:
1. Post RIGHT hip arthroplasty with significantly improved appearance of poorly defined hematomas within the anterior right thigh, right gluteal musculature, and along the prosthesis. Grossly unchanged elongated postoperative seroma. Significant
soft tissue edema and stranding within the proximal right thigh.
2. Additional chronic incidental findings detailed above.
Abdomen/Pelvis CT 09/27/23:
ABDOMEN: The right lobe of liver is top normal in size measuring 17.6 cm in length. There has been a previous cholecystectomy. There is no abnormal biliary dilatation. There is mild diffuse pancreatic parenchymal atrophy. The spleen is mildly
enlarged measuring 12.6 cm in length. The adrenal glands appear normal. There is mild bilateral renal cortical volume loss. There is no intrarenal calculus, ureteral calculus, or hydroureteronephrosis. There is moderate calcific atherosclerotic
plaque in the abdominal aorta without evidence for aneurysmal dilatation. There is no retroperitoneal or mesenteric lymphadenopathy.
There is no abnormal distention or wall thickening in the stomach, duodenum, or jejunum. There is no upper abdominal ascites or pneumoperitoneum.
PELVIS: There is no abnormal small bowel distention or wall thickening. There is a moderate amount of fecal material in the cecum and ascending colon. There is severe diverticulosis throughout the sigmoid colon.
IMPRESSION:
1. 13.5 cm ACUTE SOFT TISSUE HEMATOMA around the proximal femoral component of a newly placed right total hip arthroplasty. 11.8 cm ACUTE INTRAMUSCULAR HEMATOMA in THE ANTERIOR PROXIMAL RIGHT THIGH. 7.1 cm acute intramuscular hematoma in the right
gluteus minimus and medius muscles. 4.9 cm acute extraperitoneal hematoma in the right piriformis muscle. Small amount of acute retroperitoneal hemorrhage within and anterior to the right iliopsoas muscle.
2. Large 13.5 cm postoperative seroma in the lateral subcutaneous fat of the right hip.
3. Multiple subserosal uterine leiomyoma.
4. Severe diverticulosis in the sigmoid colon.
5. Mild splenomegaly.
6. Mild chronic bilateral renal disease.
7. Previous cholecystectomy.
8. Chronic superior endplate fracture of L5.
Prior GI Procedures:
EGD:
~2005
Colonoscopy:
03/16/2021 ([facility])- lipoma, diverticulosis, internal hemorrhoids
04/01/2014 ([facility])- hyperplastic polyps, diverticulosis, anal papilla hypertrophy, external hemorrhoids
11/13/2010 ([facility])- diverticulosis, redundant colon, internal hemorrhoids, anal papilla hypertrophy
Assessment / Plan
-
73 year old female with past medical history of polycythemia vera, paroxysmal afib, diverticulosis, diverticulitis (2013), cdiff (2013), IBS, and recent right hip replacement on 09/26/23 with postoperative course complicated by a large hematoma, 3u
pRBC and 1 plt transfusion; who presented to the ED yesterday for increased clear drainage from her surgical site and found to have abnormal liver enzymes in the ED. Her previous labs in August were normal.
Impression:
Initial labs in ED showed elevated AST and ALT in a hepatocellular pattern, and elevated bilirubin which was predominantly indirect bilirubin. Given her recent history of surgery and postoperative course including a large hematoma and transfusion of
3u pRBC, the elevated indirect bilirubin is likely secondary to hemolysis and resorption of extravasated blood, which is overall benign. Differential diagnosis of hepatocellular pattern includes medication-induced, viral hepatitis, and ischemic
hepatitis though this is less likely given that it is often associated with symptoms and more severe AST and ALT elevations. Alkaline phosphatase elevation is mild and given history of cholecystectomy and lack of symptoms, abnormal LFTs are not
cholestatic in nature. Normal INR and PT are reassuring in terms of liver function.
Plan:
- Medication-induced hepatocellular pattern is most likely etiology. Recent tylenol use throughout prior hospitalization may contribute to elevated AST/ALT, even at therapeutic non-toxic drug levels. Although xarelto and besrimi can contribute to
elevations in AST and ALT, do not suspect they are fully responsible for current lab abnormalities as they were not started recently. Additionally, given that the benefit of these in managing afib and PV are great and the lab abnormalities at this
time are mild and asymptomatic, would not recommend discontinuation for this reason.
- Recommend avoiding tylenol at this time to help clarify the trend LFTs and etiology.
- Will obtain abdominal ultrasound to further evaluate and rule out cholestasis.
- Hepatitis panel pending.
- Continue to trend LFTs.
- Continue to trend CBC. If hgb/hct continue trending down, consider further evaluation for delayed hemolytic transfusion reaction or source of blood loss.
-
-
Thank you for consultation and allowing me to participate in the patient's care. Please call the preschool special education teacher GI physician during the after hours with any questions or concerns.
[2023-10-05] MEDS: NON-FORMULARY ITEM 5 MG PO ×2 (08:11→20:34)
[2023-10-05] MEDS: CARDIZEM CD 180 MG PO (09:54)
[2023-10-05] MEDS: XARELTO 20 MG PO (09:54)
[2023-10-05 10:36] LABS: INR 1.02; PT 13.4 Sec (11.4-14.6)
[2023-10-05 10:39] LABS: GGTP 199 U/L (12-43)
[2023-10-05 11:04] LABS: Iron 44 ug/dl (37-170)
[2023-10-05 11:13] LABS: Percent Saturation 11 % (20-50); Total Iron Binding Capacity 387 ug/dl (265-497)
[2023-10-05 11:33] LABS: TSH Reflex To Free T4 3.27 uIU/ml (0.47-4.68)
[2023-10-05 11:38] LABS: Ferritin 53.2 ng/ml (11.1-264.0)
--- NOTE | 2023-10-05 11:57 | W.PN.UPDATE ---
Update Note
Progress Note Update
HPI: Mrs. Luna is a 73 year old female who is 9 days s/p right ANA LILIA, performed on 09/26/2023, under the direction of Dr. Varela. Presented to ED yesterday after experiencing clear drainage from her right hip aquacel dressing. Noted to have
elevated LFTs, prompting admission. Prior to this drainage, she reports increased activity throughout the day that was associated with increased swelling/tightness about her thigh. Post op CT scan demonstrated multiple hematomas/seromas about the
hip/thigh. She denies any drainage prior to this, fevers, chills, or increased pain about the hip.
Exam: Aquacel dressing in place over right hip incision - there are 2 small areas of bloody drainage. Moderate diffuse swelling of thigh with associated ecchymosis extending into her knee. Mild TTP over thigh. Good ROM without pain. Calf soft
and non tender to palpation.
Assessment: S/p right ANA LILIA with hematoma/seroma formation.
Plan: Will continue to monitor right hip for drainage. Recommend PT when medically stable. Continue Xarelto for DVT prophylaxis due to hypercoagulable state and Polycythemia Vera. Continue ice. Will check in on her tomorrow am to see if there
is any further drainage from her right hip.
--- NOTE | 2023-10-05 15:00 | PTCARENOTE ---
Received pt from IMU.Report from [facility]. Pt awake alert and oriented x3. Pt VSS 98% on RA, NSR on tele. Pt c/o pain in right hip tolerable at this time. Able to ambulate into room with rolling walker. Right leg with +2, mainly upper thigh,
bruising unchanged, pt reports both areas are looking like they are improving. Aquacell with 2 small areas of drainage, unchanged. Pt oriented to room, call cortez within reach, plan of care continues.
--- NOTE | 2023-10-05 16:35 | CM ---
Patient with Hx Polycythemia vera with Dx Acute hepatocellular pattern abn LFTs, s/p right ANA LILIA with hematoma/seroma right thigh. Room air.
Met with patient who resides with her in a 2 story house with 3+1 GAMAL.
The patient has been independent in ADLs and ambulation using her RW.
Patient states she has a dressing right thigh.
DME - RW, SPC, shower chair, raised toilet seat
VN - current with VN for SN/PT/OT.
SNF - none
PCP - Griselda Sargent
Pharmacy - [facility]
Message to Dr Nixon requesting PT/OT Evals.
Plan follow up after seen by PT/OT.
[2023-10-05] MEDS: SENOKOT-S 1 TABLET PO (16:53)
[2023-10-06 03:45] VITALS: BP 133/68
[2023-10-06 07:00] VITALS: BP 118/73
--- NOTE | 2023-10-06 07:37 | W.PN.UPDATE ---
Update Note
Progress Note Update
Status post right total hip arthroplasty September 26, [address] Varela. Postoperatively she was having incisional bleeding. CT scan did show seroma. She has had issues with elevated LFTs. Today she seems doing much better and dressing was changed.
There is no active bleeding. Mild to moderate edema with ecchymosis. Passive motion is nonpainful. Calf soft nontender. Distal neurovascular was intact. Patient could resume PT while here at the hospital. Appreciate medical teams efforts with
patient. Follow-up next week for wound check.
[2023-10-06] MEDS: XARELTO 20 MG PO (08:01)
[2023-10-06] MEDS: NON-FORMULARY ITEM 5 MG PO (08:02)
[2023-10-06] MEDS: CARDIZEM CD 180 MG PO (08:02)
--- NOTE | 2023-10-06 08:13 | W.PN.GI.CBS2 ---
Addendum entered and electronically signed by Marika More DO 10/06/23 12:25:
Patient seen and examined independently of resident. I agree with her note with my additions below
Patient feels good with no complaints
LFT pattern is improving. Avoiding all Tylenol and any hepatotoxic medications that we can hold
From by liver/GI standpoint she could be discharged. She has VNA who can check labs on her early next week
I did print out her labs so she can discuss that with her field manager in order to determine if she should inject her BESREMi at home on Tuesday. She will continue to hold it until she hears from them
She is aware no Tylenol, no alcohol
GI will sign off. Please call with questions
Original Note:
Today's Communication / Plan
-
LFTs improving. Recommendation regarding tomorrow's dose of besrimi to come, pending input from Dr. Small's office.
Assessment / Plan
-
73 year old female with past medical history of polycythemia vera, paroxysmal afib, diverticulosis, diverticulitis (2013), cdiff (2014), IBS, and recent right hip replacement on 09/26/23 with postoperative course complicated by thrombocytosis,
hematoma, postop blood loss for which she received 3u pRBC and 1 plt transfusion; who presented to the ED 10/04/23 for increased clear drainage from her surgical site and found to have abnormal liver enzymes in the ED. Her previous labs in August were
normal.
10/03 -> 10/04 -> 10/05
Tbili 3.0 -> 2.3 -> 1.7
AST 190 -> 137 -> 85
ALT 217 -> 201 -> 158
alk phos 187 -> 158 -> 152
Abnormal liver enzymes, predominantly hepatocellular pattern; mildly elevated indirect bilirubin
- Likely secondary to hematoma plus DILI.
- No abdominal pain or GI complaints. Abdominal ultrasound of liver 10/05/23 was normal. Hepatitis panel is pending.
- Avoid hepatotoxic medications including tylenol. Call placed to Dr. Small's office at [place] ([phone]) to discuss besrimi, which patient is due for her regular dose tomorrow 10/07/23. Spoke directly with her office, and provided Dr. More's
callback number. They said they will forward the message to their clinical team with high priority, and they will return our call. Dr. More aware. Recommendations for besrimi to come.
- LFTs have been trending down. Consider spacing labwork and monitoring outpatient.
Subjective
Subjective
Date of Service: October 06, 2023
No GI complaints. Had bowel movement this morning that was soft and well-formed. She says her appetite is improving, and she has no problems eating/drinking. No nausea, vomiting, abdominal pain, diarrhea.
Objective
Data Reviewed
Laboratory Data:
Laboratory Results
PT 13.4 Sec (11.4-14.6) 10/05/23 10:05
INR 1.02 10/05/23 10:05
Total Bilirubin 2.3 mg/dl (0.2-1.3) H 10/05/23 04:05
AST 137 U/L (14-36) H 10/05/23 04:05
ALT 201 U/L (0-35) H 10/05/23 04:05
Alkaline Phosphatase 158 U/L (38-126) H 10/05/23 04:05
Lipase 360 U/L (23-300) H 10/05/23 04:05
Vital Signs and I&O:
Vital Signs
Temp Pulse Resp BP Pulse Ox
98.6 F 80 16 118/73 98
10/06/23 07:00 10/06/23 07:00 10/06/23 07:00 10/06/23 07:00 10/06/23 07:00
I&O
10/05/23 10/06/23 10/07/23
06:59 06:59 06:59
Intake Total 100 / 100 240 / 240
Balance 100 / 100 240 / 240
Physical Exam
Physical Exam
General: Sitting comfortably in bed, no acute distress.
Heart: Regular rate and rhythm.
Lungs: Nonlabored breathing.
GI: Normal bowel sounds present. Abdomen soft, nontender, nondistended. No rebound, rigidity, guarding.
[2023-10-06 09:12] LABS: % Basophils 0.6 % (0-2); % Eosinophils 2.5 % (0-6); % Immature Granulocytes 1.4 % (0-0.5); % Monocytes 4.2 % (1.7-9.3); % Neutrophils 85.3 % (42.2-75.2); Absolute Basophils 0.1 10^3/uL (0-0.2); Absolute Eosinophils 0.3 10^3/uL (0-0.7); Absolute Immature Granulocytes 0.2 10^3/uL (0-0.05); Absolute Lymphocytes 0.7 10^3/uL (1.2-3.4); Absolute Monocytes 0.5 10^3/uL (0.1-0.6); Absolute Neutrophils 9.6 10^3/uL (1.4-6.5); Hematocrit 34.6 % (37.0-47.0); Hemoglobin 10.4 g/dL (12.0-16.0); Mean Corp Hgb Conc. 30.1 g/dL (33.0-37.0); Mean Corpuscular Hgb 22.8 pg (27.0-31.0); Mean Corpuscular Volume 75.7 fL (81.0-99.0); Mean Platelet Volume 10.6 fL (7.4-10.4); Nucleated Red Blood Cells % 0 %; Platelet Count 591 10^3/uL (130-400); Red Blood Cell Count 4.57 10^6/uL (4.20-5.40); Red Cell Dist. Width 27.9 % (11.5-14.5); White Blood Cell Count 11.3 10^3/uL (4.8-10.8)
[2023-10-06 10:07] LABS: Anisocytosis 1+; Hypochromasia 1+; Normal RBC Morphology No; Ovalocytes Slight; Polychromasia Slight
[2023-10-06 10:40] LABS: ALT (SGPT) 158 U/L (0-35); AST (SGOT) 85 U/L (14-36); Albumin 3.9 g/dl (3.5-5.0); Alkaline Phosphatase 152 U/L (38-126); Blood Urea Nitrogen 14 mg/dl (7-17); Calcium 9.5 mg/dl (8.4-10.2); Carbon Dioxide 27 mmol/L (22-30); Chloride 101 mmol/L (98-107); Estimated Creatinine Clearance 81 ml/min; Glucose 100 mg/dl (70-99); Potassium 4.8 mmol/L (3.5-5.1); Sodium 135 mmol/L (135-145); Total Bilirubin 1.7 mg/dl (0.2-1.3); eGFR > 60.00
--- NOTE | 2023-10-06 10:54 | W.PN.HOSP.TC ---
Today's Communication/Plan
-
F/U further GI recs
PT/OT
Assessment / Plan
Assessment / Plan
Ms. Adore Luna is a 73 yo woman with hx PV with thrombocytosis on Xarelto, POD 9 right ANA LILIA complicated with hematoma discharged 10/03 represents to the ER with drainage (cleared by ortho for discharge again) but found to have elevated liver
enzymes.
Acute hepatocellular pattern abn LFTs
-differential includes ischemia from hypotensive episode versus drug reaction versus other etiology hepatitis. patient was taking RTC tylenol; tylenol level neg on admit but patient was taking frequently can still contribute to liver inflammation
- Held Tramadol
- US Abdomen complete in AM
- F/U hepatitis panel
- liver enzymes trending down
- GI consult appreciated
- hold tylenol
s/p R ANA LILIA complicated with poorly defined hematoma at Rt thigh (Dr. Varela 09/26/23) DC'd yesterday
Drainage from Rt Hip was clear and not bloody.
- PT/OT
- appreciate ortho updates
HX Polycythemia vera with thrombocytosis, currently on Jakafi and alpha interferon
Medically induced Iron deficiency, for polycythemia vera, no need for IV iron per change attendant on last admission
- f/u Professor In [employer] [facility] Dr. Ann Small
- continue FOOT CASTER Xarelto
In NSR
HX Prx AF requiring full dose Xarelto
DVT Px: on Xarelto
Code: Full
IP TLM
Anticipated Discharge: Within 24 hours
Subjective/Interval History
-
Date of Service: October 06, 2023
feeling better today
hip remains swollen, slowly improving
wants to get up
Objective Data
-
Labs:
Laboratory Results
10/06/23
08:22
WBC 11.3 H
Hgb 10.4 L
Hct 34.6 L
Plt Count 591 H
Sodium 135
Potassium 4.8
Chloride 101
Carbon Dioxide 27
BUN 14
Creatinine 0.6
Glucose 100 H
Calcium 9.5
Total Bilirubin 1.7 H
AST 85 H
ALT 158 H
Alkaline Phosphatase 152 H
Vital Signs:
Vital Signs
Temp Pulse Resp BP Pulse Ox
98.6 F 80 16 118/73 98
10/06/23 07:00 10/06/23 07:00 10/06/23 07:00 10/06/23 07:00 10/06/23 08:00
I&O
10/05/23 10/06/23 10/07/23
06:59 06:59 06:59
Intake Total 100 / 100 240 / 240
Balance 100 / 100 240 / 240
Review of Systems
-
History Source: Patient
All other systems: Reviewed and negative
Physical Exam
-
General: No Apparent Distress
HEENT: PERRLA
Respiratory: Clear to Auscultation; Negative Wheezes
Cardiac: Regular Rhythm and S1/S2
GI: Soft and Nontender
Musculoskeletal: No Edema
Skin: Other (right thigh with swelling, bruising with bandage mild oozing, no bloody drainage )
Neuro: AO x 3
Psych: Calm and Anxious
Data Reviewed
-
Diagnostic Radiology: Report Reviewed by me
Labs: Labs Reviewed by me
[2023-10-06 11:00] VITALS: BP 136/61
--- NOTE | 2023-10-06 12:58 | W.DS.TRANS ---
DC Summary - Backend Tester
-
Discharge Instructions:
Sleep Apnea Risk Intermediate
Discharge Diagnosis/Procedures elevated liver enzymes
Diet Regular
Activity As tolerated
Driving Restrictions As prior to admission
Bathing Restrictions None
Blood Work CMP in 4-5 days. This is to monitor your liver
enzymes.
Other Services PT,OT
Instructions:
Stand-Alone Forms:
Changes to Home Medications: Yes
Discharge Medications:
DC Medications w/original date entered in [facility]
ropeginterferon [id number] 500 mcg/mL subcutaneous syringe (Besremi) 75 mcg SC Q2W Biological Response Modul 09/07/23
ruxolitinib 5 mg tablet (Jakafi) 5 mg PO BID Antineoplastic Agent 09/07/23
ergocalciferol (vitamin D2) 50 mcg (2,000 unit) tablet 50 mcg PO WEEKLY vitamin D deficiency #20 tabs 09/16/23
Saccharomyces boulardii 250 mg capsule (Florastor) 250 mg PO BID #1 cap 09/27/23
docusate sodium 100 mg capsule (Colace) 100 mg PO BID stool softner #1 cap 09/27/23
rivaroxaban 20 mg tablet (Xarelto) 20 mg PO QPM Blood Clot Prevention/Tx 09/27/23
diltiazem HCl 180 mg capsule,extended release 24 hr (Cardizem CD) 180 mg PO DAILY Heart Disease/Condition #0 caps 09/28/23
Home Medication Changes
please hold Besremi until after speaking to Door Fitter
Pending Results: Yes
Additional Pending Results:
hepatitis serologies
[2023-10-06 13:15] VITALS: BP 140/71; PULSE 72; O2SAT 98
--- NOTE | 2023-10-06 13:32 | VNURNOTE ---
Home health liaison met with patient to discuss resuming [facility] services, visit scheduling/frequency, homebound status and pet policy. Patient understands home visits will be 1-2 times a week to assess and teach medical management. Patient aware a
visiting nurse will contact them for start of care within 2-3 days after discharge from . [facility] Referral completed in care port
--- NOTE | 2023-10-06 13:45 | W.DCSUMMARY ---
Discharge Summary
Discharge Data
Date of Admission: 10/05/23
Date of Discharge: 10/06/23
-
Pending Results: No
Hospital Course
Discharging Physician : Dr. Rama Nixon
Disposition : Home
Primary care physician : Dr. Griselda Sargent
Principal Discharge diagnosis : Elevated Liver enzymes
Hospital Course :
Ms. Adore Luna is a 73 yo woman with hx polycythemia vera with thrombocytosis, paroxysmal atrial fibrillation on Xarelto, recent R ANA LILIA complicated with poorly defined hematoma at Rt thigh (Dr. Varela 09/26/23) discharged 10/03 presents following
day with drainage from right hip and wet dressing. Triage vitals significant for hypertension. Labs with WBC 14, Hg 10.3 (was 8.9 day prior), liver enzymes elevated with T. Bili 3.0, AST 190, ALT 217 Alk Phos 187. Tylenol level undetectable. She
was admitted to medicine with GI consulting for further work-up. Abdominal US performed which showed no acute abnormality. Over the next 48 hours, liver enzymes trended down. Etiology thought most likely drug induced. She is told to stop taking
tylenol. She will hold Besremi until hears from outpatient Education Program Coordinator and she will avoid alcohol. Repeat liver enzymes ordered for early next week.
Time spent on discharge 31 minutes.
Important imaging findings :
ABDOMEN US 10/05/23
IMPRESSION: Prior cholecystectomy.
Otherwise, unremarkable abdominal ultrasound.
Procedure findings :
Discharge Plan
-
Patient Disposition: Home (Routine Discharge)
Discharge Diagnosis/Procedures: elevated liver enzymes
Diet: Regular
Activity: As tolerated
Driving Restrictions: As prior to admission
Bathing Restrictions: None
Blood Work: CMP in 4-5 days. This is to monitor your liver enzymes.
Other Services: PT and OT
Referrals:
Griselda Sargent MD [Family Provider] - in less than 1 week
Additional Discharge Medication Instructions: Please hold Besremi until you hear from your Education Program Coordinator.
Stop Tylenol and avoid all alcohol.
Take your next Xarelto dose tomorrow evening (already received this morning). Xarelto is more effective if taken in the evenings.
Prescriptions:
Continued
Jakafi 5 mg Tablet
5 mg PO BID
Besremi 500 mcg/mL Syringe
75 mcg SC Q2W
ergocalciferol (vitamin D2) 50 mcg (2,000 unit) tablet
50 mcg PO WEEKLY Qty: 20 3RF
Patient Comments:
last taken weeks ago per patient.
Xarelto 20 MG tablet
20 mg PO QPM
Hold Instructions: Resume on 09/30/23. 10mg nightly until 09/30/23--then resume home dose 20mg pm
docusate sodium [Colace] 100 mg capsule
100 mg PO BID Qty: 1 0RF
Saccharomyces boulardii [Florastor] 250 mg capsule
250 mg PO BID Qty: 1 0RF
diltiazem HCl [Cardizem CD] 180 mg capsule,extended release 24hr
180 mg PO DAILY Qty: 0 0RF
Discharge Orders:
Discharge Patient (As Directed); Ordered 10/06/23
Ordered By: Rama Nixon
Discharge Date and Time
Print Language: [place]ET[place]ESE
--- NOTE | 2023-10-06 14:15 | CM ---
GINNA met with Adore this afternoon to discuss discharge plans. She would like to resume SN/PT/OT with [facility] at discharge. No other needs identified.
Nelida from [facility] aware of referral and will arrange for SOC after discharge.
Plan: D/C home with [facility].
PCP - Griselda Sargent
Pharmacy - [facility]
[2023-10-06 15:00] VITALS: BP 133/64
[2023-10-06 18:50] LABS: Hepatitis B Surface Antigen Negative (Negative)
[2023-10-06 19:08] LABS: Hepatitis B Core Ab, Total Negative (Negative); Hepatitis C Antibody Negative (Negative)
[2023-10-06 20:17] LABS: Hepatitis A IgM Antibody Negative (Negative); Hepatitis B Core Ab, IgM Negative (Negative)
[2023-10-06 20:21] LABS: Hepatitis B Surface Antibody Indeterminate
[2023-10-07 01:11] LABS: Transferrin 293 mg/dL (200-360)
== END 2023-10-06 16:55 | disposition home health service (06) ==
LOC: 4 EAST ACU 00:40
PROVIDERS: Clinical Nurse Specialist Family Health; ADMITTING PHYSICIAN Internal Medicine; ATTENDING PHYSICIAN Student in an Organized Health Care Education/Training Program; CONSULT PHYSICIAN Internal Medicine; EMERGENCY PHYSICIAN Emergency Medicine; FAMILY PHYSICIAN Internal Medicine
DX: M96.840 Postprocedural hematoma of a musculoskeletal structure following a musculoskeletal system procedure (principal); Y83.8 Other surgical procedures as the cause of abnormal reaction of the patient, or of later complication, without mention of misadventure at the time of the procedure; Y79.2 Prosthetic and other implants, materials and accessory orthopedic devices associated with adverse incidents; Y92.9 Unspecified place or not applicable; M25.551 Pain in right hip; R26.2 Difficulty in walking, not elsewhere classified; I48.0 Paroxysmal atrial fibrillation; R74.8 Abnormal levels of other serum enzymes; D75.839 Thrombocytosis, unspecified; K58.9 Irritable bowel syndrome, unspecified; I10 Essential (primary) hypertension; M19.90 Unspecified osteoarthritis, unspecified site; K57.30 Diverticulosis of large intestine without perforation or abscess without bleeding; D68.59 Other primary thrombophilia; D45 Polycythemia vera; Z96.641 Presence of right artificial hip joint; Z90.49 Acquired absence of other specified parts of digestive tract; Z98.890 Other specified postprocedural states; Z79.01 Long term (current) use of anticoagulants; Z87.891 Personal history of nicotine dependence; Z88.5 Allergy status to narcotic agent; Z88.0 Allergy status to penicillin; Z88.8 Allergy status to other drugs, medicaments and biological substances; Z88.1 Allergy status to other antibiotic agents; Z91.040 Latex allergy status
CPT/HCPCS: 76700; 80053; 80143; 82248; 82728; 82977; 83540; 83550; 83690; 84443; 84466; 85025; 85027; 85610; 86704; 86705; 86706; 86709; 86803; 87070; 87340; 97162; 99285; G0378

== ENCOUNTER → 2023-10-11 11:00 | Outpatient (REF) | payer MEDICARE, OTHER, SELFPAY ==
[2023-10-11 14:23] LABS: % Eosinophils 3.5 % (0-6); % Lymphocytes 7.2 % (20.5-51.1); % Monocytes 6.7 % (1.7-9.3); % Neutrophils 80.6 % (42.2-75.2); Absolute Basophils 0.1 10^3/uL (0-0.2); Absolute Eosinophils 0.4 10^3/uL (0-0.7); Absolute Immature Granulocytes 0.1 10^3/uL (0-0.05); Absolute Lymphocytes 0.8 10^3/uL (1.2-3.4); Absolute Monocytes 0.7 10^3/uL (0.1-0.6); Absolute Neutrophils 8.5 10^3/uL (1.4-6.5); Hematocrit 37.5 % (37.0-47.0); Hemoglobin 11.4 g/dL (12.0-16.0); Mean Corp Hgb Conc. 30.4 g/dL (33.0-37.0); Mean Corpuscular Hgb 22.8 pg (27.0-31.0); Mean Corpuscular Volume 75.2 fL (81.0-99.0); Nucleated Red Blood Cells % 0 %; Red Blood Cell Count 4.99 10^6/uL (4.20-5.40); Red Cell Dist. Width 27.2 % (11.5-14.5); White Blood Cell Count 10.6 10^3/uL (4.8-10.8)
[2023-10-11 14:27] LABS: Mean Platelet Volume 10.6 fL (7.4-10.4); Platelet Count 675 10^3/uL (130-400)
[2023-10-11 14:31] LABS: ALT (SGPT) 46 U/L (0-35); AST (SGOT) 31 U/L (14-36); Albumin 4.2 g/dl (3.5-5.0); Alkaline Phosphatase 125 U/L (38-126); Blood Urea Nitrogen 18 mg/dl (7-17); Calcium 9.9 mg/dl (8.4-10.2); Carbon Dioxide 29 mmol/L (22-30); Chloride 97 mmol/L (98-107); Glucose 87 mg/dl (70-99); Potassium 5.2 mmol/L (3.5-5.1); Sodium 133 mmol/L (135-145); Total Bilirubin 1.5 mg/dl (0.2-1.3); Total Protein 6.4 g/dl (6.3-8.2); eGFR > 60.00
== END ==
LOC: CLAB 11:00
PROVIDERS: ATTENDING PHYSICIAN Internal Medicine; OTHER PHYSICIAN Internal Medicine Hematology & Oncology; OTHER PHYSICIAN Specialist
DX: D45 Polycythemia vera (principal)
CPT/HCPCS: 36415; 80053; 85025

== ENCOUNTER → 2023-10-20 14:27 | Outpatient (REF) | payer MEDICARE, OTHER, SELFPAY ==
[2023-10-20 15:36] LABS: ALT (SGPT) 21 U/L (0-35); AST (SGOT) 26 U/L (14-36); Albumin 4.2 g/dl (3.5-5.0); Alkaline Phosphatase 128 U/L (38-126); Blood Urea Nitrogen 17 mg/dl (7-17); Calcium 10.2 mg/dl (8.4-10.2); Carbon Dioxide 21 mmol/L (22-30); Chloride 102 mmol/L (98-107); Direct Bilirubin 0.2 mg/dl (0.0-0.4); Glucose 114 mg/dl (70-99); Potassium 5.2 mmol/L (3.5-5.1); Sodium 132 mmol/L (135-145); Total Bilirubin 0.8 mg/dl (0.2-1.3); Total Protein 6.4 g/dl (6.3-8.2); eGFR > 60.00
[2023-10-20 16:06] LABS: Amylase 73 U/L (30-110); Lipase 268 U/L (23-300)
[2023-10-20 16:28] LABS: Hematocrit 44.1 % (37.0-47.0); Hemoglobin 12.9 g/dL (12.0-16.0); Mean Corp Hgb Conc. 29.3 g/dL (33.0-37.0); Mean Corpuscular Hgb 22.5 pg (27.0-31.0); Mean Platelet Volume 10.5 fL (7.4-10.4); Platelet Count 666 10^3/uL (130-400); Red Blood Cell Count 5.73 10^6/uL (4.20-5.40); Red Cell Dist. Width 24.2 % (11.5-14.5)
[2023-10-20 16:29] LABS: % Basophils 1.3 % (0-2); % Eosinophils 4.3 % (0-6); % Immature Granulocytes 0.5 % (0-0.5); % Lymphocytes 7.1 % (20.5-51.1); % Monocytes 4.8 % (1.7-9.3); Absolute Basophils 0.1 10^3/uL (0-0.2); Absolute Eosinophils 0.4 10^3/uL (0-0.7); Absolute Immature Granulocytes 0.1 10^3/uL (0-0.05); Absolute Lymphocytes 0.7 10^3/uL (1.2-3.4); Absolute Monocytes 0.5 10^3/uL (0.1-0.6); Absolute Neutrophils 8.2 10^3/uL (1.4-6.5); Nucleated Red Blood Cells % 0 %
[2023-10-20 16:30] LABS: Anisocytosis 2+; Normal RBC Morphology No; Ovalocytes 1+
== END ==
LOC: CLAB 14:27
PROVIDERS: ATTENDING PHYSICIAN Internal Medicine Hematology & Oncology
DX: D45 Polycythemia vera (principal)
CPT/HCPCS: 80053; 82150; 82248; 83690; 85025

== ENCOUNTER → 2023-11-03 09:28 | Outpatient (REF) | payer MEDICARE, OTHER, SELFPAY ==
[2023-11-03 10:13] LABS: % Basophils 1.9 % (0-2); % Eosinophils 5.2 % (0-6); % Immature Granulocytes 0.4 % (0-0.5); % Lymphocytes 8.1 % (20.5-51.1); % Neutrophils 79.4 % (42.2-75.2); Absolute Basophils 0.2 10^3/uL (0-0.2); Absolute Eosinophils 0.5 10^3/uL (0-0.7); Absolute Lymphocytes 0.8 10^3/uL (1.2-3.4); Absolute Monocytes 0.5 10^3/uL (0.1-0.6); Absolute Neutrophils 7.6 10^3/uL (1.4-6.5); Hematocrit 44.3 % (37.0-47.0); Hemoglobin 13.5 g/dL (12.0-16.0); Mean Corp Hgb Conc. 30.5 g/dL (33.0-37.0); Mean Corpuscular Hgb 21.5 pg (27.0-31.0); Mean Corpuscular Volume 70.7 fL (81.0-99.0); Nucleated Red Blood Cells % 0 %; Red Blood Cell Count 6.27 10^6/uL (4.20-5.40); Red Cell Dist. Width 22.4 % (11.5-14.5); White Blood Cell Count 9.5 10^3/uL (4.8-10.8)
[2023-11-03 10:36] LABS: ALT (SGPT) 21 U/L (0-35); AST (SGOT) 28 U/L (14-36); Albumin 4.4 g/dl (3.5-5.0); Alkaline Phosphatase 97 U/L (38-126); Amylase 70 U/L (30-110); Blood Urea Nitrogen 20 mg/dl (7-17); Calcium 10.5 mg/dl (8.4-10.2); Carbon Dioxide 27 mmol/L (22-30); Chloride 103 mmol/L (98-107); Direct Bilirubin 0.2 mg/dl (0.0-0.4); Glucose 91 mg/dl (70-99); Lipase 237 U/L (23-300); Potassium 4.9 mmol/L (3.5-5.1); Sodium 137 mmol/L (135-145); Total Bilirubin 0.7 mg/dl (0.2-1.3); Total Protein 6.5 g/dl (6.3-8.2); eGFR > 60.00
[2023-11-03 10:45] LABS: Mean Platelet Volume 10.9 fL (7.4-10.4); Platelet Count 686 10^3/uL (130-400)
== END ==
LOC: CLAB 09:28
PROVIDERS: ATTENDING PHYSICIAN Internal Medicine
DX: D45 Polycythemia vera (principal)
CPT/HCPCS: 80053; 82150; 82248; 83690; 85025

== ENCOUNTER 2023-11-05 04:35 | Emergency (ER) | payer MEDICARE, OTHER, SELFPAY ==
[2023-11-05 04:39] VITALS: BP 199/109
[2023-11-05 05:44] VITALS: BP 149/89
--- NOTE | 2023-11-05 05:54 | ED.GENMED ---
History of Present Illness
General
Chief Complaint: Heart Rate Problem
Time Seen by Provider: 11/05/23 05:03
History of Present Illness
History of Present Illness:
73-year-old female with history of A-fib on diltiazem and Xarelto presenting to the emergency department with concern of atrial fibrillation. Reports last evening around 11 PM she felt herself go into atrial fibrillation. She reports that she
missed a dose of her diltiazem because she ran out of the medication from the distributor that she prefers. She takes 240 ER daily. Prior to arrival, she took 180 mg, which she did have at home. She noted some nausea and palpitations prior to
arrival. Denies any chest pain, abdominal pain, fever, or additional acute medical complaints. Notes longstanding history of atrial fibrillation and ablation in the past.
Past History
Past History
ED Past Medical History: Arrthythmia (Paroxysmal atrial fibrillation, SVT), HTN and Other (Diverticulosis/diverticulitis, Clostridium difficile diarrhea 2013,Osteoarthritis, Vertigo, IBS, polycythemia vera)
ED Past Surgical History: Cardiac (Radiofrequency ablation of A. fib 2006), Cholecystectomy, Gynecological, Orthopedic (left and right hip replacment), Tonsilectomy and Other (left breast Papiloma)
Social History
Tobacco: Former smoker (Quit 1989)
Alcohol: Daily (1 glasses of wine)
Drug: None
Personal:
Living: with family
Employment: Employed
Family History
Family History: Adopted
Phy Exam
Physical Exam
Physical Exam:
General: Well-appearing, no clinical signs of dehydration, nontoxic and in no acute distress
HEENT: protecting airway
Neck: appears supple
CV: Normal heart rate, regular rhythm, no evidence of cyanosis
Resp: No accessory muscle use, no increased work of breathing, lungs clear to auscultation bilaterally
Abd: non-distended
Extremities: No deformities, no swelling
Neuro: alert, no focal neurologic deficit
: deferred
Rectal: deferred
Psych: Normal affect
Skin: Intact
Course
Orders/Labs/Results
Orders:
Orders
11/05/23 04:46
EKG [Electrocardiogram (*1)] Urgent
Reason for Study: Palpitations
11/05/23 04:47
EKG- Treatment ONCE
11/05/23 05:16
Diltiazem Extended Release [Cardizem Cd] 240 mg PO NOW STA
Vital Signs
Initial and Last Documented VS:
Initial Vital Signs
Temp Pulse Resp BP Pulse Ox
98.0 F 105 20 199/109 96
11/05/23 04:39 11/05/23 04:39 11/05/23 04:39 11/05/23 04:39 11/05/23 04:39
Last Documented Vital Signs
Temp Pulse Resp BP Pulse Ox
98.0 F 81 18 149/89 98
11/05/23 04:39 11/05/23 05:44 11/05/23 05:44 11/05/23 05:44 11/05/23 05:44
MDM/Problems Addressed
MDM/Problems Addressed:
73-year-old female with history of A-fib on diltiazem and Xarelto presenting for concern of being in atrial fibrillation after a missed dose of diltiazem. Vital signs on arrival significant for mild tachycardia.
On exam, patient well-appearing, no acute distress. Patient had EKG on arrival, and felt herself going into sinus rhythm. EKG confirms sinus rhythm. Patient is now asymptomatic. Patient did take 180 mg diltiazem prior to arrival. Reports that
she missed her dose yesterday because she did not like the distributor. Do not feel patient requires any does work up, now that she is in sinus rhythm and asymptomatic. She reports for the next 2 days she will take the 240 mg dosage despite the
distributor, and is able to fill her prescription on Tuesday. Feel stable for discharge. Return precautions discussed and patient verbalized understanding
*EKG
Interpreted by ED Provider?: Yes
EKG Intrepretation Date: 11/05/23
EKG Intrepretation Time: 05:57
Interpretation: normal
Comparison EKG: no changes (09/28/23)
Heart Rate: 81
Rate: normal
Rhythm: sinus
[place]: normal axis and left axis deviation
Interval: normal interval
QRS Pattern: normal QRS
Ischemia: no ischemia
*Critical Care Note
Total Time (30-74mins, 75-104mins- exclusive of procedures): Not Applicable
ED Attending Note
-
Portions of this chart may have been created with voice recognition software.� Occasional wrong word or��sound alike� substitutions may have occurred due to the inherent limitations of voice recognition software.
Discharge Plan
Departure
Prescriptions:
No Action
Jakafi 5 mg Tablet
5 mg PO BID
Besremi 500 mcg/mL Syringe
75 mcg SC Q2W
ergocalciferol (vitamin D2) 50 mcg (2,000 unit) tablet
50 mcg PO WEEKLY Qty: 20 3RF
Patient Comments:
last taken weeks ago per patient.
Xarelto 20 MG tablet
20 mg PO QPM
docusate sodium [Colace] 100 mg capsule
100 mg PO BID Qty: 1 0RF
Saccharomyces boulardii [Florastor] 250 mg capsule
250 mg PO BID Qty: 1 0RF
diltiazem HCl [Cardizem CD] 180 mg capsule,extended release 24hr
180 mg PO DAILY Qty: 0 0RF
Interventions
Interventions:
*Risk Screen - Suicide Last Done: 11/05/23 04:39
*General Assessment Last Done: 11/05/23 04:39
*Neglect/Abuse Screening Last Done: 11/05/23 04:39
ED- Fall Risk Assessment Last Done: 11/05/23 04:39
*ED COVID-19 Vaccine History Last Done: 11/05/23 04:39
ED- Cardiac Assessment Last Done: 11/05/23 05:38
ED- Pulmonary Assessment Last Done: 11/05/23 05:38
Discharge Date and Time
Print Language: BENGAL[place]
== END 2023-11-05 06:07 | disposition home or self-care (01) ==
LOC: EMR 04:35
PROVIDERS: EMERGENCY PHYSICIAN Student in an Organized Health Care Education/Training Program; FAMILY PHYSICIAN Internal Medicine
DX: I48.0 Paroxysmal atrial fibrillation (principal); R11.0 Nausea; K57.90 Diverticulosis of intestine, part unspecified, without perforation or abscess without bleeding; I10 Essential (primary) hypertension; K58.9 Irritable bowel syndrome, unspecified; D45 Polycythemia vera; M19.90 Unspecified osteoarthritis, unspecified site; Z90.49 Acquired absence of other specified parts of digestive tract; Z96.643 Presence of artificial hip joint, bilateral; Z87.891 Personal history of nicotine dependence; Z79.01 Long term (current) use of anticoagulants; Z88.5 Allergy status to narcotic agent; Z88.0 Allergy status to penicillin; Z88.8 Allergy status to other drugs, medicaments and biological substances; Z88.1 Allergy status to other antibiotic agents; Z88.3 Allergy status to other anti-infective agents; Z91.040 Latex allergy status
CPT/HCPCS: 99283; 93005

== ENCOUNTER → 2023-12-08 10:47 | Outpatient (REF) | payer MEDICARE, OTHER, SELFPAY | LOC: WDC 10:47 | PROVIDERS: ATTENDING PHYSICIAN Obstetrics & Gynecology Gynecology; FAMILY PHYSICIAN Internal Medicine | DX: Z12.31 Encounter for screening mammogram for malignant neoplasm of breast (principal) | CPT/HCPCS: 77063; 77067 ==

== ENCOUNTER → 2024-12-08 09:03 | Outpatient (REF) | payer MEDICARE, OTHER, SELFPAY | LOC: RAD 09:03 | PROVIDERS: ATTENDING PHYSICIAN Internal Medicine Cardiovascular Disease; FAMILY PHYSICIAN Internal Medicine | DX: I10 Essential (primary) hypertension (principal) | CPT/HCPCS: 75571 ==

== ENCOUNTER → 2024-12-12 08:44 | Outpatient (REF) | payer MEDICARE, OTHER, SELFPAY | LOC: WDC 08:44 | PROVIDERS: ATTENDING PHYSICIAN Obstetrics & Gynecology Gynecology; FAMILY PHYSICIAN Internal Medicine | DX: Z12.31 Encounter for screening mammogram for malignant neoplasm of breast (principal) | CPT/HCPCS: 77063; 77067 ==